=== PATIENT | female | born 2000 | race Caucasian/White ===

== ENCOUNTER 2023-08-06 02:31 | Inpatient (IN) ==
[2023-08-06 03:20] LABS: Appearance Urine Clear (Clear); Bacteria Urine Automated None Seen (None Seen); Bilirubin Urine Negative (Negative); Blood Urine Negative (Negative); Cast Urine Automated 0-2 /lpf (0-2); Color Urine Yellow; Epithelial Cell Urine Auto 0-2 /hpf (0-2); Glucose Urine UA Negative (Negative); Ketones Urine Negative (Negative); Leukocyte Esterase Urine 1+ (Negative); Nitrite Urine Negative (Negative); Protein Urine Negative (Negative); RBC Urine Automated 0-2 /hpf (0-2); Specific Gravity Urine 1.003 (1.000-1.030); Urobilinogen Urine Negative (Negative)
--- NOTE | 2023-08-06 03:25 | Emergency Department Note ---
Impression & Plan Alcohol intoxication, NSAID overdose, Suicidal ideation ED Provider Note HISTORY OF PRESENT ILLNESS: Patient is a 22-year-old female presenting after an intentional overdose. Patient reportedly texted her friend that she "wanted to go by." Her friend called her father who brings the patient to the ER. Patient is tearful and evasive with answering questions. She states that she took 4-5 tabs of Celebrex at a time and took 4-5 handfuls about 1 hour prior to arrival. She reports she has had 7 beers tonight. Reports that she has self-harm behaviors with cutting in the past. She reports that her prescription for Celebrex is 100 mg. She denies taking any other medications. Denies any current chest pain or shortness of breath. Denies any abdominal pain, nausea or vomiting. She reports she is not having as of wanting to end her life for over a year, but they have been worse and more frequent in the last few weeks. Patient denies taking any other medications, including prescription or [id number], other than the Celebrex. ROS: as above PHYSICAL EXAM: Constitutional: Patient appears in no acute distress. HENT: Head: Normocephalic and atraumatic. Eyes: EOMI, PERRL Mouth/Throat: Mucous membranes moist. Neck: Trachea midline. Neck supple. Musculoskeletal: No edema, tenderness or deformity noted. Skin: Warm and dry. No rash, erythema, pallor or cyanosis Psychiatric: Patient is tearful. Neurological: Alert and keenly responsive. CN II-XII grossly intact, moving all extremities equally and fully. MDM: - Vitals signs showed hypertension - History obtained via patient. History as above. - Chronic conditions affecting care: anxiety/depression - Differential diagnoses include, but are not limited to: alcohol intoxication; drug overdose; dysrhythmia; electrolyte abnormality; UTI - Order placed for continuous cardiac monitoring. At this time, monitor showed rate of 90 bpm with normal sinus rhythm, per my interpretation. - External medical records reviewed. Operative report dated 02/09/2020 was reviewed. Patient follow-up with oral maxillofacial surgery for impacted wisdom teeth #1 and #16. - EKG interpreted by myself showed normal sinus rhythm. Rate 85 bpm. QT 392. No acute ischemic changes. - Laboratory workup interpreted by myself showed normal WBC; slight hypokalemia (K 3.2); hypermagnesemia (Mg 2.6); elevated ethanol level (184.1); negative acetaminophen/salicylate levels; negative hCG - UA negative for infection - UDS negative - COVID negative - Patient seen in conjunction with behavioral health behavioral health case manager. -Nursing staff called poison control center in terms of the patient's Celebrex overdose. They report that the patient should be monitored and can be medically cleared at 6 hours postingestion. Patient reports that she ingested the medications about 1 hour prior to arrival in the emergency department around 2:30 AM. Patient will be medically cleared at 7:30 AM. - Prior to disposition, care of patient was checked out to Dr. Maravilla following a discussion of the patient's course. ASSESSMENT AND PLAN: Diagnosis: alcohol intoxication; NSAID overdose; suicidal ideation with attempt Past Med/Surg History Medical History Anxiety and depression Migraine Surgical History H/O wisdom tooth extraction 02/02 Dr. kent No history of previous surgery Family History Other Past medical history not known due to adoption Social History Smoking Status: Former smoker Second Hand Exposure: No; Hx Alcohol Use: No Hx Substance Use: No Preferred Language: Hebrew Web Content Producer Required: No Beliefs That Will Affect Care: None marital status: Single current occupational status: student Feels Safe at Home: No Assistive Devices: None Allergies Allergies Allergy/AdvReac Type Severity Reaction Status Date / Time No Known Allergies Allergy Verified 02/17/20 10:40 Home Meds Home Medications Medication Instructions Recorded Confirmed bupropion HCl 150 mg tablet,12 hr 150 mg PO QAM 12/02/19 02/17/20 sustained-release (Wellbutrin SR) magnesium 250 mg tablet 250 mg PO BID 12/02/19 02/17/20 melatonin 5 mg capsule 5 mg PO HS 12/02/19 02/17/20 multivitamin (Daily Multi-Vitamin 1 tab PO QAM 12/02/19 02/17/20 tablet) riboflavin (vitamin B2) 25 mg 50 mg PO BID 12/02/19 02/17/20 tablet Previous Rx's Medication Instructions Recorded ondansetron HCl 8 mg tablet 8 mg PO Q8H PRN nausea and 02/09/20 vomiting #10 tabs Results & Data (ED) Vital Signs Vital Signs - 24 hr 08/06/23 02:33 08/06/23 02:55 08/06/23 02:56 Temperature 36.4 C L Temperature Source Temporal Artery Scan Pulse Rate 109 H 85 87 Pulse Rate [Apical] Pulse Rate from SpO2 Sensor 87 Pulse Rhythm Pulse Rhythm [Apical] Pulse Strength [Apical] Respiratory Rate 20 17 Respiratory Effort / Characteristics Non-Labored Spontaneous Respiratory Depth Normal Respiratory Pattern Blood Pressure 142/88 H Blood Pressure [Left Arm] Blood Pressure Mean 106 Blood Pressure Mean [Left Arm] Blood Pressure Position [Left Arm] Pulse Oximetry 98 97 Oxygen Delivery Method Room Air Room Air Oxygen Flow Rate Sepsis Recent Fever Within 48 Hours No Sepsis New/Unexplained Change in Mental Status N/A Sepsis Action Taken by Nursing No Action Required 08/06/23 03:00 08/06/23 03:03 08/06/23 03:29 Temperature Temperature Source Pulse Rate 81 86 92 H Pulse Rate [Apical] Pulse Rate from SpO2 Sensor 82 85 Pulse Rhythm Regular Pulse Rhythm [Apical] Pulse Strength [Apical] Respiratory Rate 16 19 17 Respiratory Effort / Characteristics Respiratory Depth Respiratory Pattern Blood Pressure 109/69 Blood Pressure [Left Arm] Blood Pressure Mean 82 Blood Pressure Mean [Left Arm] Blood Pressure Position [Left Arm] Pulse Oximetry 99 98 99 Oxygen Delivery Method Room Air Room Air Room Air Oxygen Flow Rate Sepsis Recent Fever Within 48 Hours Sepsis New/Unexplained Change in Mental Status Sepsis Action Taken by Nursing 08/06/23 03:30 08/06/23 03:31 08/06/23 04:00 Temperature Temperature Source Pulse Rate 97 H 96 H Pulse Rate [Apical] Pulse Rate from SpO2 Sensor 98 H 98 H Pulse Rhythm Pulse Rhythm [Apical] Pulse Strength [Apical] Respiratory Rate 20 18 Respiratory Effort / Characteristics Respiratory Depth Respiratory Pattern Blood Pressure 123/88 Blood Pressure [Left Arm] Blood Pressure Mean 99 Blood Pressure Mean [Left Arm] Blood Pressure Position [Left Arm] Pulse Oximetry 96 97 Oxygen Delivery Method Room Air Room Air Room Air Oxygen Flow Rate 98 Sepsis Recent Fever Within 48 Hours Sepsis New/Unexplained Change in Mental Status Sepsis Action Taken by Nursing 08/06/23 04:00 08/06/23 04:30 08/06/23 04:32 Temperature Temperature Source Pulse Rate 84 80 Pulse Rate [Apical] 84 Pulse Rate from SpO2 Sensor 79 Pulse Rhythm Pulse Rhythm [Apical] Regular Pulse Strength [Apical] Normal Respiratory Rate 16 14 16 Respiratory Effort / Characteristics Non-Labored Spontaneous Respiratory Depth Normal Respiratory Pattern Regular Blood Pressure 123/88 Blood Pressure [Left Arm] 123/88 Blood Pressure Mean 110 Blood Pressure Mean [Left Arm] 99 Blood Pressure Position [Left Arm] Lying Pulse Oximetry 97 100 98 Oxygen Delivery Method Room Air Room Air Room Air Oxygen Flow Rate Sepsis Recent Fever Within 48 Hours Sepsis New/Unexplained Change in Mental Status Sepsis Action Taken by Nursing 08/06/23 05:00 08/06/23 05:00 Temperature Temperature Source Pulse Rate 77 82 Pulse Rate [Apical] Pulse Rate from SpO2 Sensor 77 Pulse Rhythm Pulse Rhythm [Apical] Pulse Strength [Apical] Respiratory Rate 16 16 Respiratory Effort / Characteristics Respiratory Depth Respiratory Pattern Blood Pressure 99/51 L Blood Pressure [Left Arm] Blood Pressure Mean 62 Blood Pressure Mean [Left Arm] Blood Pressure Position [Left Arm] Pulse Oximetry 96 96 Oxygen Delivery Method Room Air Room Air Oxygen Flow Rate Sepsis Recent Fever Within 48 Hours Sepsis New/Unexplained Change in Mental Status Sepsis Action Taken by Nursing Laboratory Data 08/06/23 03:02 08/06/23 03:02 Lab Results 08/06/23 08/06/23 08/06/23 Range/Units 02:45 03:02 04:20 WBC 7.18 (4.8-10.8) K/ul RBC 4.74 (4.20-5.40) M/uL Hgb 14.4 (12.0-16.0) g/dl Hct 42.5 (37.0-47.0) % MCV 89.7 (80.0-100.0) fL MCH 30.4 (25.0-34.0) pg MCHC 33.9 (32.0-36.0) g/dL RDW Std Deviation 41.8 (36.4-46.3) fL RDW Coeff of Kt 12.5 (11.5-14.5) % Plt Count 316 (130-400) K/uL MPV 10.0 (9.4-12.4) fL Immature Gran % (Auto) 0.4 % Neut % (Auto) 63.1 % Lymph % (Auto) 32.0 % Frederick % (Auto) 3.8 % Eos % (Auto) 0.3 % Baso % (Auto) 0.4 % Neut # (Auto) 4.53 (1.40-6.50) K/uL Lymph # (Auto) 2.30 (1.20-3.40) K/uL Frederick # (Auto) 0.27 (0.11-0.59) K/uL Eos # (Auto) 0.02 (0.00-0.50) K/uL Baso # (Auto) 0.03 (0.00-0.20) K/uL Immature Gran # (Auto) 0.03 (0.01-0.20) K/uL Sodium 142 (136-145) mmol/L Potassium 3.2 L (3.5-5.1) mmol/L Chloride 110 H (98-107) mmol/L Carbon Dioxide 22 (21-32) mmol/L Anion Gap 10 (3-11) BUN 8 (6-23) mg/dl Creatinine 0.75 (0.6-1.2) mg/dl Est Cr Clr Drug Dosing 99.0 ml/min Est GFR ( Amer) 133.0 ml/min Est GFR (Non-Af Amer) 114.7 ml/min BUN/Creatinine Ratio 10.7 (10-20) Glucose 108 H (70-99(Fasting)) mg/dl Calcium 9.6 (8.6-10.3) mg/dl Magnesium 2.6 H (1.7-2.4) mg/dl Total Bilirubin 0.2 (0.2-1.0) mg/dl AST 25 (13-39) U/L ALT 21 (7-52) U/L Alkaline Phosphatase 61 (34-104) U/L Total Protein 8.0 (6.0-8.3) gm/dl Albumin 4.8 (3.4-5.0) gm/dl Globulin 3.2 (2.5-4.0) gm/dl Albumin/Globulin Ratio 1.5 (0.9-2) HCG, Qual Negative (Negative) Urine Color Yellow Urine Appearance Clear (Clear) Urine pH 6.0 (4.5-7.5) Ur Specific Cr[place] 1.003 (1.000-1.030) Urine Protein Negative (Negative) Urine Glucose (UA) Negative (Negative) Urine Ketones Negative (Negative) Urine Blood Negative (Negative) Urine Nitrite Negative (Negative) Urine Bilirubin Negative (Negative) Urine Urobilinogen Negative (Negative) Ur Leukocyte Esterase 1+ H (Negative) Urine WBC (Auto) 6-10 H (0-5) /hpf Urine RBC (Auto) 0-2 (0-2) /hpf U Hyaline Cast (Auto) 0-2 (0-2) /lpf U Epithel Cells (Auto) 0-2 (0-2) /hpf Urine Bacteria (Auto) None Seen (None Seen) Salicylates < 3.0 L (3.0-30) mg/dl Urine Opiates Screen Neg (Neg) Ur Methadone, Qual Neg (Neg) Acetaminophen < 3 L (10-30) ug/ml Urine Barbiturates Neg (Neg) Ur Phencyclidine (PCP) Neg (Neg) U Amphetamin/Meth Scrn Neg (Neg) MDMA (Ecstasy) Screen Neg (Neg) U Benzodiazepines Scrn Neg (Neg) Ur Cocaine Metabolite Neg (Neg) U Marijuana (THC) Screen Neg (Neg) Ethyl Alcohol mg/dL 184.1 H (<10.0) mg/dl SARS-CoV-2, RNA, NAAT (NEGATIVE) 08/06/23 Range/Units Unknown WBC (4.8-10.8) K/ul RBC (4.20-5.40) M/uL Hgb (12.0-16.0) g/dl Hct (37.0-47.0) % MCV (80.0-100.0) fL MCH (25.0-34.0) pg MCHC (32.0-36.0) g/dL RDW Std Deviation (36.4-46.3) fL RDW Coeff of Kt (11.5-14.5) % Plt Count (130-400) K/uL MPV (9.4-12.4) fL Immature Gran % (Auto) % Neut % (Auto) % Lymph % (Auto) % Frederick % (Auto) % Eos % (Auto) % Baso % (Auto) % Neut # (Auto) (1.40-6.50) K/uL Lymph # (Auto) (1.20-3.40) K/uL Frederick # (Auto) (0.11-0.59) K/uL Eos # (Auto) (0.00-0.50) K/uL Baso # (Auto) (0.00-0.20) K/uL Immature Gran # (Auto) (0.01-0.20) K/uL Sodium (136-145) mmol/L Potassium (3.5-5.1) mmol/L Chloride (98-107) mmol/L Carbon Dioxide (21-32) mmol/L Anion Gap (3-11) BUN (6-23) mg/dl Creatinine (0.6-1.2) mg/dl Est Cr Clr Drug Dosing ml/min Est GFR ( Amer) ml/min Est GFR (Non-Af Amer) ml/min BUN/Creatinine Ratio (10-20) Glucose (70-99(Fasting)) mg/dl Calcium (8.6-10.3) mg/dl Magnesium (1.7-2.4) mg/dl Total Bilirubin (0.2-1.0) mg/dl AST (13-39) U/L ALT (7-52) U/L Alkaline Phosphatase (34-104) U/L Total Protein (6.0-8.3) gm/dl Albumin (3.4-5.0) gm/dl Globulin (2.5-4.0) gm/dl Albumin/Globulin Ratio (0.9-2) HCG, Qual (Negative) Urine Color Urine Appearance (Clear) Urine pH (4.5-7.5) Ur Specific Cr[place] (1.000-1.030) Urine Protein (Negative) Urine Glucose (UA) (Negative) Urine Ketones (Negative) Urine Blood (Negative) Urine Nitrite (Negative) Urine Bilirubin (Negative) Urine Urobilinogen (Negative) Ur Leukocyte Esterase (Negative) Urine WBC (Auto) (0-5) /hpf Urine RBC (Auto) (0-2) /hpf U Hyaline Cast (Auto) (0-2) /lpf U Epithel Cells (Auto) (0-2) /hpf Urine Bacteria (Auto) (None Seen) Salicylates (3.0-30) mg/dl Urine Opiates Screen (Neg) Ur Methadone, Qual (Neg) Acetaminophen (10-30) ug/ml Urine Barbiturates (Neg) Ur Phencyclidine (PCP) (Neg) U Amphetamin/Meth Scrn (Neg) MDMA (Ecstasy) Screen (Neg) U Benzodiazepines Scrn (Neg) Ur Cocaine Metabolite (Neg) U Marijuana (THC) Screen (Neg) Ethyl Alcohol mg/dL (<10.0) mg/dl SARS-CoV-2, RNA, NAAT NEGATIVE (NEGATIVE) Discharge Plan Visit Data Chief Complaint: Overdose (Intentional) Stated Complaint: OVERDOSE ED Provider: Guillermina Cardenas Discharge Problem: Alcohol intoxication, NSAID overdose, Suicidal ideation Forms Stand Alone Forms: [facility], Suicide Prevention Resources Prescriptions Prescriptions: No Action bupropion HCl [Wellbutrin SR] 150 mg tablet sustained-release 12 hr 150 mg PO QAM riboflavin (vitamin B2) 25 mg tablet 50 mg PO BID magnesium 250 mg tablet 250 mg PO BID multivitamin [Daily Multi-Vitamin] Tablet 1 tab PO QAM melatonin 5 mg capsule 5 mg PO HS ondansetron HCl 8 mg tablet 8 mg PO Q8H PRN (Reason: nausea and vomiting) Qty: 10 0RF Referrals Referrals: [facility] [Primary Care Provider] -
[2023-08-06 03:39] LABS: Basophils # (auto) 0.03 K/uL (0.00-0.20); Basophils % (auto) 0.4 %; Eosinophils # (auto) 0.02 K/uL (0.00-0.50); Eosinophils % (auto) 0.3 %; Hematocrit (blood only) 42.5 % (37.0-47.0); Hemoglobin 14.4 g/dl (12.0-16.0); Immature Granulocytes # (auto) 0.03 K/uL (0.01-0.20); Immature Granulocytes % (auto) 0.4 %; Mean Corpuscular Hemoglobin 30.4 pg (25.0-34.0); Mean Corpuscular Hgb Conc 33.9 g/dL (32.0-36.0); Mean Corpuscular Volume 89.7 fL (80.0-100.0); Monocytes # (auto) 0.27 K/uL (0.11-0.59); Monocytes % (auto) 3.8 %; Neutrophils # (auto) 4.53 K/uL (1.40-6.50); Neutrophils % (auto) 63.1 %; Platelet Count 316 K/uL (130-400); RDW Coefficient of Variation 12.5 % (11.5-14.5); RDW Standard Deviation 41.8 fL (36.4-46.3); Red Blood Count 4.74 M/uL (4.20-5.40); White Blood Count 7.18 K/ul (4.8-10.8)
[2023-08-06 03:58] LABS: Amphetamines+Metham, Urine Neg (Neg); Barbiturates, Urine Neg (Neg); Benzodiazepine, Urine Neg (Neg); Cocaine, Urine Neg (Neg); MDMA (Ecstacy), Urine Neg (Neg); Marijuana, Urine Neg (Neg); Methadone, Urine Neg (Neg); Opiate, Urine Neg (Neg); Phencyclidine, Urine Neg (Neg)
[2023-08-06 04:00] LABS: Albumin Globulin Ratio 1.5 (0.9-2); Albumin Level 4.8 gm/dl (3.4-5.0); BUN Creatinine Ratio 10.7 (10-20); Bilirubin,Total 0.2 mg/dl (0.2-1.0); Calcium 9.6 mg/dl (8.6-10.3); Est GFR (Non-African American) 114.7 ml/min; Globulin 3.2 gm/dl (2.5-4.0); Magnesium 2.6 mg/dl (1.7-2.4); Potassium 3.2 mmol/L (3.5-5.1)
[2023-08-06 05:14] LABS: Acetaminophen < 3 ug/ml (10-30); Salicylate < 3.0 mg/dl (3.0-30)
[2023-08-06 05:24] LABS: Pregnancy Test, Serum Negative (Negative)
--- NOTE | 2023-08-06 09:12 | Electrocardiogram Report ---
Test Reason : Blood Pressure : / mmHG Vent. Rate : 085 BPM Atrial Rate : 085 BPM P-R Int : 156 ms QRS Dur : 090 ms QT Int : 392 ms P-R-T Axes : 045 039 037 degrees QTc Int : 466 ms Normal sinus rhythm T wave abnormality, consider anterior ischemia Abnormal ECG No previous ECGs available Confirmed by Bonifacio Landers ([id number]) on 08/06/2023 9:11:42 AM Referred By: REFERRED SELF Confirmed By:Thompson Landers
--- NOTE | 2023-08-06 11:22 | Emergency Department Note ---
ED Visit Note Patient was signed out to me at change of shift by Dr. Cardenas, pending reevaluation for alcohol intoxication and suicide attempt via medication ov erdose. Patient was medically cleared at 7:30 AM. Patient was assessed by case management, determined appropriate for inpatient admission. Patient was initially resistant to this idea however following my discussion with the patient and her parents at the bedside she will sign in voluntarily as a 201 for suicidal thoughts and attempt. Patient otherwise physically appears well on my assessment, bed search will be initiated. Patient was evaluated for placement at 3 S. and was accepted for inpatient care. Patient was transferred to the behavioral health unit in stable condition for voluntary admission. Diagnosis: Suicide attempt/suicidal thoughts Disposition: Admission under 201 .
--- OUTSIDE RECORDS SUMMARY | 2023-08-06 13:03 | External Medical Summary | Summary of Care ---
Author Name Unknown Organization [facility] Address [address] [place] [address] Phone [phone] Care Team Providers Care Neurologist Name Role Phone Milli Fajardo DOREEN Primary Care Provider [phone] Reason for Visit * Reason Onset Date Comments Appointment 05/16/2023 MRI Encounter Details Date Type Department Care Team (Late st Contact Info) Description 05/16/2023 Telephone [address] [facility] [place] [address] Krystal Boogie, RT (R) Appointment (MRI) Allergies No known active allergiesdocumented as of this encounter (statuses as of 05/16/2023) Medications Medication Sig Dispensed Refills Start Date End Date Status Norethindrone 0.35 MG Oral TabletIndications:Gene ral counselling and advice on contraception Take 1 Tablet by mouth in the morning. 84 Tablet 3 10/22/2022 Active Gabapentin 100 MG Oral Capsule (Neurontin)Indications :Acute bilateral low back pain with bilateral sciatica Take 1 Capsule by mouth in the morning and 1 Capsule at noon and 1 Capsule before bedtime. 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 Ingrowing right great toenail 10/02/2015 Migraine without aura and wi thout status migrainosus, not intractable 06/26/2015 Asthma in remission 12/24/2012 Migraine with aura and with status migrainosus, not intractable documented as of this encounter (statuses as of 05/16/2023) Resolved Problems Problem Noted Date Diagnosed Date Resolved Date Concussion with no loss of consciousness 05/14/2015 05/23/2015 HYPERTROPHY TONSILS 05/25/2006 12/25/19 13 documented as of this encounter (statuses as of 05/16/2023) Immunizations Name Administration Dates Next Due COVID-19 mRNA, LNP-s, No Pre serve, 2-Dose Series ([place]. com. cn) 08/30/2020,08/09/2020 DTaP Dipth/Tet/Acell Pertussis (Infanrix), Peds 10/12/2007 H1N1 2009 Influenza, Intranasal 04/27/2009 HPV Vaccine, 9-Valent 10/27/2017,10/08/2016 IPV - Polio Virus Vaccine (Inact) 10/12/2007 MMR - Measles/Mumps/Rubella Vaccine 10/12/2007 Meningococcal B, 2/3-Dose Se dina (TRUMENBA) 06/19/2021,12/13/2020 Meningococcal Conjugate Vacc ine (Menactra/Menveo) 02/02/2014 Meningococcal MCV4O Conjugat e Vaccine (Menveo) 01/10/2019 PPD 05/02/2019 Pneumococcal Conjugate Vacci ne, 20-valent ([id number]) 12/26/2021 Seasonal Influenza Intranasal 02/02/2014 ,02/16/2012,02/13/2011,01/23 Seasonal Influenza, PF, 6 M & above, IM , (FluLaval or Fluzone) 01/01/2023,12/26/2021,01/10/2019,06/01 Seasonal Influenza, Quadriva lent, No Preserve, IM 02/07/2016,02/13/2015 Seasonal Influenza, Split, I IV3, No Preserve, Inj 02/10/2006 Seasonal Influenza, Split, I IV3, With Preserve, Inj 02/21/2013,01/23/2009,02/11/2008,01/07 TDAP (age 10 and older)(Boostrix) 02/02/2014 Varicella Vaccine (Chicken Pox) 10/12/2007 documented as of this encounter Social History Tobacco Use Types Packs/Day Years Used Date Smoking Tobacco: Never Smokeless Tobacco: Never Alcohol Use Standard Drinks/Week Comments Yes 0 (1 standard drink = 0.6 oz pur e alcohol) AUDIT-C Answer Date Recorded Q1: How often do you have a drink containing alc ohol? 2-4 times a month 11/29/2020 Q2: How many drinks containi ng alcohol do you have on a typical day when you are drinking? 5 or 6 11/29/2020 Q3: How often do you have si x or more drinks on one occasion? Never 11/29/2020 PHQ-2 Answer Date Recorded PHQ Adult Total Score 0 01/01/2023 Hunger Vital Sign Answer Date Recorded Within the past 12 months, y ou worried that your food would run out before you got the money to buy more. Never true 09/18/19 23 Within the past 12 months, t he food you bought just didn't last and you didn't have money to get more. Never true 09/17/2022 Sex and Gender Information Value Date Recorded Sex Assigned at Female 12/26/2021 2:48 PM EDT Gender Identity Female 12/26/2021 2:48 PM EDT Sexual Orientation Straight 12/26/2021 2: 48 PM EDT Job Start Date Occupation Industry Not on file Not on file Not on file documented as of this encounter Miscellaneous Notes * Telephone Encounter - Krystal Boogie RT (R) - 05/16/2023 11:10 AM EST Name: Jolynn De La Garza Do you have any of the following: Pacemaker, stents, heart valves, aneurysm clips? No Have you ever worked with metal or have you ever gotten metal in your eyes? No Have you had a colonoscopy in the last 30 days? No On dialysis? No Do you have any dermals or body piercing's? Yes-plastic piercings ? No Do you wear an insulin pump or diabetic monitor? No No new tattoos Knows to check in at [address] Geoff (R) documented in this encounter Plan of Treatment Upcoming Encounters Date Type Department Care Team (Late st Contact Info) Description 05/18/2023 7:00 AM EST Imaging Radiology [address], [place] [address] [place] [id number] 10/05/2023 3:00 PM EDT Office Visit Gynecology/Obstetrics [facility] [address] [place] [address] Adilia Sharp PA-C [address] [place] [address] 01/04/2024 2:00 PM EDT Office Visit Family Practice [facility] [address] [place] [address] Milli Fajardo CRNP [address] [place] [address] Health Maintenance Due Date Last Done Comments Hepatitis B (3 of 3 - 3-dose series) 02/01/2004 12/07/2003, 10/02/2003, 09/11/2003 Gonorrhea / Chlamydia Screen 11/29/2021 11/29/2020 COVID-19 Vaccine (3 - 2022-2 4 season) 2022 08/30/2020, 08/09/2020 Depression Screening 01/02/2024 01/01/2023 Yearly Wellness Visit 01/02/2024 01/01/2023 , 11/29/2020, 11/04/2019, Additional history exists DTaP,Tdap,and Td Vaccines (6 - Td or Tdap) 02/03/2024 02/02/2014, 10/12/2007, 06/19/2004, Additional history exists GARDASIL-HPV IMMUNIZATION SERIES Completed 10/28/19, 10/08/2016 MENINGOCOCCAL (MENACTRA/MENVEO) Completed , 02/02/2014 Pneumococcal Vaccine: Pediat rics (0 to 5 Years) and At-Risk Patients (6 to 64 Years) Completed 12/26/2021 Influenza Vaccine (FLU shot) Completed , 12/26/2021, 01/10/2019, Additional history exists documented as of this encounter Medical Devices Not on filedocumented as of this encounter Additional Health Concerns Infection Onset Date Last Indicated Resolved Time Norovirus 06/09/2022 06/09/2022 documented as of this encounter Care Teams Neurologist Relationship Specialty Start Date End Date Milli Fajardo CRNP [address] [place] [id number] PCP - General Nurse Practitioner 03/28/22 documented as of this encounter
--- OUTSIDE RECORDS SUMMARY | 2023-08-06 13:03 | External Medical Summary | Summary of Care ---
Author Name Unknown Organization [facility] Address [address] [place] [address] Phone [phone] Care Team Providers Care Process Control Board Operator Name Role Phone Leacharlie Milli LOGAN Primary Care Provider [phone]- [phone] Reason for Referral * Evaluate & Treat - Unlimited Visits (Within 10 days (routine)) - Pending Review Specialty Diagnoses / Procedures Referred By Aliyah bansal Referred To Contact Pain Management / Pain Medicine Diagnoses Lumbar radiculopathy Latoya Cabral PA-C [address] [place] [address] Referral ID Status Reason Start Date Expiration Date Visits Requested Visits Authorized [id number] Pending Review Specialty Services Required 05/19/2023 999 [id number] Question Answer Referral Priority Within 10 days (routine) Where should this appointment be scheduled? [facility] Reason for referral? Interventional Pain Management - (Injection) What condition is the patient being referred for? Lumbar Radiculopathy - L4-5 disc protrusion What is the preferred location to have this test performed? [facility] Comments Patient Name: Jolynn De La Garza Date of : 2000 Department Phone Number: MRI or CT (if unable to have a MRI) is recommended if any of the following apply: 1. Patient has neck or back pain with radiation to extremities. A previous MRI will be accepted if symptoms unchanged since prior MRI. 2. Spinal surgery since last MRI. If yes, order a MRI with and without contrast. 3. Hx or ongoing cancer treatment. Patient will need spine x-ray (Ap/Lat) for axial neck or back pain if not done previously. Fax No. [facility] [phone] or contact bookkeeping clerks supervisor [phone] Fax No. [facility] [phone] or contact bookkeeping clerks supervisor [phone] Fax No. [facility] [phone] or contact bookkeeping clerks supervisor [phone] Reason for Visit * Reason Onset Date Comments Test Results 05/19/2023 MRI results Encounter Details Date Type Department Care Team (Late st Contact Info) Description 05/19/2023 Telephone Family Practice [facility] [address] [place] [address] Latoya Cabral PA-C [address] [place] [address] Test Results (MRI results) Allergies No known active allergiesdocumented as of this encounter (statuses as of 06/02/2023) Medications Medication Sig Dispensed Refills Start Date End Date Status Norethindrone 0.35 MG Oral TabletIndications:Gener al counselling and advice on contraception Take 1 Tablet by mouth in the morning. 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 Ingrowing right great toenail 10/02/2015 Migraine without aura and wi thout status migrainosus, not intractable 06/26/2015 Asthma in remission 12/24/2012 Migraine with aura and with status migrainosus, not intractable documented as of this encounter (statuses as of 06/02/2023) Resolved Problems Problem Noted Date Diagnosed Date Resolved Date Concussion with no loss of consciousness 05/14/2015 05/23/2015 HYPERTROPHY TONSILS 05/25/2006 12/25/19 13 documented as of this encounter (statuses as of 06/02/2023) Immunizations Name Administration Dates Next Due COVID-19 mRNA, LNP-s, No Pre serve, 2-Dose Series (Pfizer) 08/30/2020,08/09/2020 DTaP Dipth/Tet/Acell Pertussis (Infanrix), Peds 10/12/2007 H1N1 2009 Influenza, Intranasal 04/27/2009 HPV Vaccine, 9-Valent 10/27/2017,10/08/2016 IPV - Polio Virus Vaccine (Inact) 10/12/2007 MMR - Measles/Mumps/Rubella Vaccine 10/12/2007 Meningococcal B, 2/3-Dose Se dina (TRUMENBA) 06/19/2021,12/13/2020 Meningococcal Conjugate Vacc ine (Menactra/Menveo) 02/02/2014 Meningococcal MCV4O Conjugat e Vaccine (Menveo) 01/10/2019 PPD 05/02/2019 Pneumococcal Conjugate Vacci ne, 20-valent ([id number]) 12/26/2021 Seasonal Influenza Intranasal 02/02/2014 ,02/16/2012,02/13/2011,01/23 Seasonal [...] encounter Miscellaneous Notes * Telephone Encounter - Veronika Cota LPN - 05/19/2023 1:49 PM EST Pt called and given message below and wants to discuss with her parents on next step. She will senda [employer] message on her decision on what she wants to do. * Telephone Encounter - Latoya Cabral PA-C - 05/19/2023 12:20 PM EST Please let patient know that there was small disc bulge at L4-5 which is likely contributing to pain. There was no evidence of disc herniation. At this time I would recommend restarting PT and considering pain management for injections for pain. documented in this encounter Plan of Treatment Upcoming Encounters Date Type Department Care Team (Latest Contact Info) Description 08/07/2023 12:30 PM EDT Hospital Encounter [facility], Operating Room [facility] [address] [facility] [place] [phone] Fredy Reilly, DO [address] [place] [id number] 08/07/2023 12:30 PM EDT - 08/07/2023 12:55 PM EDT Surgery OR [facility], Operating Room [facility] [address] [place] [phone] Fredy Reilly, DO [address] [place] [phone] INJECTION SPINE LUMBAR OR SACRAL 10/05/2023 3:00 PM EDT Office Visit Gynecology/Obstetri [facility] [address] [place] [address] Adilia Sharp PA-C [address] [place] [address] 01/04/2024 2:00 PM EDT Office Visit Family Practice [facility] [address] [place] [address] Milli Fajardo CRNP [address] [place] [address] Scheduled Procedures Name Priority Associated Diagnoses Date/Ti me INJECTION SPINE LUMBAR OR SACRAL Lumbar radiculopathy 08/07/2023 12:30 PM EDT Scheduled Referrals Name Type Priority Associated Diagnoses Orde r Schedule PAIN MEDICINE REFERRAL OP Referral Within 10 days (routine) Lumbar radiculopathy Ordered: 05/19/2023 Health Maintenance Due Date Last Done Comments [...] Additional history exists GARDASIL-HPV IMMUNIZATION SERIES Completed 10/28/19 18, 10/08/2016 MENINGOCOCCAL (MENACTRA/MENVEO) Completed , 02/02/2014 Pneumococcal Vaccine: Pediat rics (0 to 5 Years) and At-Risk Patients (6 to 64 Years) Completed 12/26/2021 Influenza Vaccine (FLU shot) Completed , 12/26/2021, 01/10/2019, Additional history exists documented as of this encounter Medical Devices Not on filedocumented as of this encounter Visit Diagnoses Diagnosis Lumbar radiculopathy- Primary Thoracic or lumbosacral neuritis or radiculitis, unspecified Lumbar radiculopathy Thoracic or lumbosacral neuritis or radiculitis, unspecified documented in this encounter Additional Health Concerns Infection Onset Date Last Indicated Resolved Time Norovirus 06/09/2022 06/09/2022 documented as of this encounter Care Teams Process Control Board Operator Relationship Specialty Start Date End Date Milli Fajardo CRNP [address] [place] [address] PCP - General Nurse Practitioner 03/28/22 documented as of this encounter
--- OUTSIDE RECORDS SUMMARY | 2023-08-06 13:03 | External Medical Summary | Summary of Care ---
Author Name Unknown Organization [facility] Address [address] [place] [address] Phone [phone] Care Team Providers Care Combine Mechanic Name Role Phone Milli Fajardo DOREEN Primary Care Provider [phone]- [phone] Reason for Referral * Precert (Within 10 days (routine)) - Pending Review Specialty Diagnoses / Procedures Referred By Aliyah bansal Referred To Contact Radiology Diagnoses Lumbar radiculopathy Leg weakness, bilateral Procedures MRI L SPINE WO CONTRAST Latoya Cabral PA-C [address] [place] [address] Referral ID Status Reason Start Date Expiration Date V isits Requested Visits Authorized [id number] Pending Review 03/31/[phone] Reason for Visit * Reason Comments Back Pain Dx herniated disc, a nd doing PT now, this past weekend, pain flared up. Wore heels Thursday night, but thinks it happened while sleeping. Encounter Details Date Type Department Care Team (Late st Contact Info) Description 03/31/2023 11:20 AM EST Office Visit Family Practice [facility] [address] [place] [address] Latoya Cabral PA-C [address] [place] [address] Lumbar radiculopathy*; Leg weakness, bilateral Allergies No known active allergiesdocumented as of this encounter (statuses as of 04/02/2023) Medications Medication Sig Dispensed Refills Start Date End Date Status Norethindrone 0.35 MG Oral TabletIndications:G eneral counselling and advice on contraception Take 1 Tablet by mouth in the morning. 84 Tablet 3 10/22/2022 Active Gabapentin 100 MG Oral Capsule (Neurontin)Indicati ons:Acute bilateral low back pain with bilateral sciatica Take 1 Capsule by mouth in the morning and 1 Capsule at noon and 1 Capsule before bedtime. 90 Capsule 0 03/02/2023 Active predniSONE 10 MG Oral Tablet (Deltasone)Indicati ons:Lumbar radiculopathy Take 5 tabs for 2 days, 4 tabs for 2 days, 3 tabs for 2 days, 2 tabs for 2 days 1 tab for 2 days 30 Tablet 0 03/31/2023 Active predniSONE 10 MG Oral Tablet (Deltasone)Indicati ons:Acute bilateral low back pain with bilateral sciatica Take 5 tabs for 2 days, 4 tabs for 2 days, 3 tabs for 2 days, 2 tabs for 2 days 1 tab for 2 days 30 Tablet 0 03/02/2023 3 Discontinued documented as of this encounter (statuses as of 04/02/2023) Active Problems Problem Noted Date Diagnosed Date UTI symptoms 04/05/2021 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 Ingrowing right great toenail 10/02/2015 Migraine without aura and wi thout status migrainosus, not intractable 06/26/2015 Asthma in remission 12/24/2012 Migraine with aura and with status migrainosus, not intractable documented as of this encounter (statuses as of 04/02/2023) Resolved Problems Problem Noted Date Diagnosed Date Resolved Date Concussion with no loss of consciousness 05/14/2015 05/23/2015 HYPERTROPHY TONSILS 05/25/2006 12/25/19 13 documented as of this encounter (statuses as of 04/02/2023) Immunizations Name Administration Dates Next Due COVID-19 mRNA, LNP-s, No Pre serve, 2-Dose Series (Guarnic) 08/30/2020,08/09/2020 DTaP Dipth/Tet/Acell Pertussis (Infanrix), Peds 10/12/2007 H1N1 2009 Influenza, Intranasal 04/27/2009 HPV Vaccine, 9-Valent 10/27/2017,10/08/2016 IPV - Polio Virus Vaccine (Inact) 10/12/2007 MMR - Measles/Mumps/Rubella Vaccine 10/12/2007 Meningococcal B, 2/3-Dose Se dina (TRUMENBA) 06/19/2021,12/13/2020 Meningococcal Conjugate Vacc ine (Menactra/Menveo) 02/02/2014 Meningococcal MCV4O Conjugat e Vaccine (Menveo) 01/10/2019 PPD 05/02/2019 Pneumococcal Conjugate Vacci ne, 20-valent ([id number]) 12/26/2021 Seasonal Influenza Intranasal 02/02/2014 ,02/16/2012,02/13/2011,01/23 Seasonal [...] on file documented as of this encounter Last Filed Vital Signs Vital Sign Reading Time Taken Comments Blood Pressure 100/40 03/31/2023 11:19 AM EST Pulse 88 03/31/2023 11:19 AM EST Temperature - - Respiratory Rate - - Oxygen Saturation - - Inhaled Oxygen Concentration - - Weight 68.5 kg (151 lb 2 oz) 03/31/2023 11:19 AM EST Height - - Body Mass Index - - documented in this encounter Progress Notes * Latoya Cabral PA-C - 03/31/2023 11:29 AM EST SUBJECTIVE: CC: Jolynn De La Garza 22 year old female who presents for evaluation of low back pain worsening. HPI: Patient was seen 02/27/[address] Phillips, note reviewed. Patient states that she has had back pain for 2 months, that she feels is a flare of previous injury in high school. This injury was never worked up, it resolved on its own prior to returning recently. She was given prednisone 10 day taper, gabapentin and referred to PT by Dr. Phillips. Reports symptoms were improving, however on Thursdaypain worsening. Pain is now 10/10, starts in lower back and radiates at times down bilateral lower legs. Legs feel weak at times, but she is able to weight bear. She also reports intermittent numbness in bilateral legs. She has not had recent xrays. She reports that she did stop gabapentin after 3 days- no reason given. She has been doing Leopoldo once weekly for low back pain, last appt on , next appt on Thursday. No bowel or urine incontinence. No recent trauma, no rash,no fever, chills, dizziness, headache, nausea, vomiting, diarrhea, abdomen apin. ROS: See HPI for pertinent positive and negatives HISTORY: Past Medical History: Diagnosis Date Bronchitis Concussion with no loss of consciousness 05/14/2015 Hypertrophy tonsils 10/07/2005 Migraine with aura and with status migrainosus, not intractable Radial styloid fracture 05/21/2013 Simple or chronic serous otitis media Chronic Serous Otitis Media No past surgical history on file. Social History Tobacco Use Smoking status: Never Smokeless tobacco: Never Vaping Use Vaping Use: Some days Substances: Nicotine Devices: Disposable, Pre-filled or refillable cartridge Substance Use Topics Alcohol use: Yes Drug use: Never Family History Adopted: Yes Outpatient Medications Marked as Taking for the 03/31/23 encounter (Office Visit) with Latoya Cabral PA-C Medication Sig Gabapentin 100 MG Oral Capsule (Neurontin) Take 1 Capsule by mouth in the morning and 1 Capsule at noon and 1 Capsule before bedtime. Norethindrone 0.35 MG Oral Tablet Take 1 Tablet by mouth in the morning. Review of patient's allergies indicates: No Known Allergies OBJECTIVE: BP 100/40 | Pulse 88 | Wt 68.5 kg (151 lb 2 oz) General: alert, well appearing, well nourished, mild distress Head: Normocephalic, no masses, lesions, or other abnormalities. Heart: regular rate & rhythm, no gallops, and no murmurs Lungs: clear to auscultation Abdomen: abdomen soft, non-tender, and normal bowel sounds Back: Back is symmetrical on inspection and there is no deformity. Point tenderness over lower lumbar back Extremities: less than 2 second capillary refill, no joint deformities, effusion, or inflammation, no edema, no cyanosis, full AROM with pain, 2+ posterior tibial pulses, radial pulses bilaterally, 4/5 b/l knee flexion, hip flexion, 5/5 dorsi and plantar flexion of ankle, 5/5 extension of hip and knee, + straight leg raise bilaterally Neuro: alert & oriented x 3 with fluent speech, no focal motor/sensory deficits, gait normal, reflexes normal and symmetric, rapid alternative movements intake, heel schmitz coordination intact Skin: skin color, texture, turgor are normal, no rashes or significant lesions ASSESSMENT/PLAN: Lumbar radiculopathy (Primary) - predniSONE 10 MG Oral Tablet (Deltasone); Take 5 tabs for 2 days, 4 tabs for 2 days, 3 tabs for 2days, 2 tabs for 2 days 1 tab for 2 days-reviewed side effects (hearburn, insomnia, increase appetite) - MRI L SPINE WO CONTRAST; Future; Expected date: 03/31/2023 - XR L SPINE AP AND LATERAL; Future; Expected date: 03/31/2023 Leg weakness, bilateral - MRI L SPINE WO CONTRAST; Future; Expected date: 03/31/2023 - XR L SPINE AP AND LATERAL; Future; Expected date: 03/31/2023 Xray today given acute flare. Recommend d/c PT at this time. Restart prednisone taper as above. Recommend restarting gabapentin, as prescribed. Given maximum doses of medications: - acetaminophen (Brand name: Tylenol) 3000mg per day - ibuprofen (Brand names: Advil, Motrin) 3200mg per day Total time today including reviewing chart before the visit, pertinent labs, imaging reports, face to face time, and documentation time was 34 minutes. Follow up: Patient instructed to follow up with Primary Care Provider if no better in: 3-5 day(s), and immediately if signs and symptoms worsen Latoya Cabral PA-C [address] [place] [address] documented in this encounter Plan of Treatment Upcoming Encounters Date Type Department Care Team (Late st Contact Info) Description 04/10/2023 2:20 PM EST Office Visit [address] [place] [address] Milli Fajardo CRNP [facility] [place] [address] 04/27/2023 4:15 PM EST Imaging Radiology [facility] 1st Floor, [address] [place] [address] 10/05/2023 3:00 PM EDT Office Visit Gynecology/Obstetrics [facility] [address] [place] [address] Adilia Sharp PA-C [address] [place] [address] 01/04/2024 2:00 PM EDT Office Visit Family Practice [facility] [address] [place] [address] Milli Fajardo CRNP [address] [place] [address] Pending Results Name Type Priority Associated Diagnoses Date /Time XR L SPINE AP AND LATERAL Medical Imaging Routine Lumbar radiculopathy 03/31/2023 11:51 AM EST Scheduled Orders Name Type Priority Associated Diagnoses Orde r Schedule MRI L SPINE WO CONTRAST Medical Imaging Routine Lumbar radiculopathy Leg weakness, bilateral Expected: 03/31/2023, Expires: 05/01/2024 XR L SPINE AP AND LATERAL Medical Imaging Routine Lumbar radiculopathy Leg weakness, bilateral Expected: 03/31/2023, Expires: 05/01/2024 Health Maintenance Due Date Last Done Comments [...] Thoracic or lumbosacral neuritis or radiculitis, unspecified Leg weakness, bilateral Other musculoskeletal symptoms referable to limbs documented in this encounter Additional Health Concerns Infection Onset Date Last Indicated Resolved Time Norovirus 06/09/2022 06/09/2022 documented as of this encounter Care Teams Combine Mechanic Relationship Specialty Start Date End Date Milli Fajardo CRNP [address] [place] [address] PCP - General Nurse Practitioner 03/28/22 documented as of this encounter"
--- OUTSIDE RECORDS SUMMARY | 2023-08-06 13:03 | External Medical Summary | Summary of Care ---
Author Name Unknown Organization [facility] Address [address] [place] [address] Phone [phone] Care Team Providers Care Car Mechanic Helper Name Role Phone Milli Fajardo DOREEN Primary Care Provider +1- [phone] Reason for Referral * Evaluate & Treat - Unlimited Visits (Within 30 days (routine)) - Pending Review Specialty Diagnoses / Procedures Referred By Aliyah bansal Referred To Contact Physical Therapy / Physical Medicine And Rehab Diagnoses Low back pain with radiation Alvarado Phillips MD [address] [place] [address] Referral ID Status Reason Start Date Expiration Date Visits Requested Visits Authorized [id number] Pending Review Specialty Services Required 3 [phone] Question Answer Referral Priority Within 30 days (routine) Where should this appointment be scheduled? [facility] Comments Suspect sciatica DDD eval ROM/strengthening/stim Reason for Visit * Reason Comments Return Visit Patient reports inju ry to back in high school, pain went away after awhile. About a month ago patient states the same area started to hurt. Encounter Details Date Type Department Care Team (Late st Contact Info) Description 02/27/2023 3:40 PM EST Office Visit Family Practice [facility] [address] [place] [address] Alvarado Phillips MD [address] [place] [address] Low back pain with radiation* Allergies No known active allergiesdocumented as of this encounter (statuses as of 02/27/2023) Medications Medication Sig Dispensed Refills Start Date End Date Status Norethindrone 0.35 MG Oral TabletIndications:Gener al counselling and advice on contraception Take 1 Tablet by mouth in the morning. 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 Ingrowing right great toenail 10/02/2015 Migraine without aura and wi thout status migrainosus, not intractable 06/26/2015 Asthma in remission 12/24/2012 Migraine with aura and with status migrainosus, not intractable documented as of this encounter (statuses as of 02/27/2023) Resolved Problems Problem Noted Date Diagnosed Date Resolved Date Concussion with no loss of consciousness 05/14/2015 05/23/2015 HYPERTROPHY TONSILS 05/25/2006 12/25/19 13 documented as of this encounter (statuses as of 02/27/2023) Immunizations Name Administration Dates Next Due COVID-19 [...] PPD 05/02/2019 Pneumococcal Conjugate Vacci ne, 20-valent ([id number]) 12/26/2021 SEASONAL INFLUENZA, PF, 6 M & Above, IM , (FLULAVAL or FLUZONE) 01/01/2023,12/26/2021,01/10/2019,06/01 Seasonal Influenza Intranasal 02/02/2014 ,02/16/2012,02/13/2011,01/23 Seasonal Influenza, Quadriva lent, No Preserve, IM 02/07/2016,02/13/2015 Seasonal Influenza, Split, I IV3, No Preserve, Inj 02/10/2006 Seasonal Influenza, Split, I IV3, With Preserve, Inj 02/21/2013,01/23/2009,02/11/2008,01/07 TDAP (age 10 and older)(Boostrix) 02/02/2014 Varicella Vaccine (Chicken Pox) 10/12/2007 documented as of this encounter Social History Tobacco Use Types Packs/Day Years Used Date Smoking Tobacco: Never Smokeless Tobacco: Never Tobacco Cessation:Counseling Given: Not Answered Alcohol Use Standard Drinks/Week Comments Yes 0 [...] Sign Reading Time Taken Comments Blood Pressure 108/64 02/27/2023 3:40 PM EST Pulse 77 02/27/2023 3:40 PM EST Temperature - - Respiratory Rate 20 02/27/2023 3:40 PM EST Oxygen Saturation 98% 02/27/2023 3:40 PM EST Inhaled Oxygen Concentration - - Weight - - Height - - Body Mass Index - - documented in this encounter Progress Notes * Alvarado Phillips MD - 02/27/2023 4:12 PM EST SUBJECTIVE: Jolynn De La Garza is a 22 year old female here for Return Visit (Patient reports injury to back in high school, pain went away after awhile. About a month ago patient states the same area started to hurt. ) . Patient complains of mid low back pain for about a month. No injuries recent that she recalls. She had a similar pain about a month ago after doing a squat and had sudden sharp pain while lifting weights. It slowly improved on its own. No history of surgery or injections on her back. No other back injuries known. Pain is worse with standing for long time or standing for long time or walking for a long time. Lying supine makes the pain go away. She has had occasional numbness going down the back of bilateral legs more on the right side than the left, over the last 1-1/2-2 weeks. Legs occasionally feel littleheavier but no specific weakness. No incontinence. Physical: BP 108/64 | Pulse 77 | Resp 20 | SpO2 98% General-No apparent Distress Head, Eyes, Ears, Nose, Throat--Normocephalic, atraumatic Neck-Supple Lymph-no lymphadenopathy Mskel +FROM back mild b/l SI tender, paraspinals tight. Pain worse with flexion. Extremities--no edema Neuro-alert & oriented x3 2+dtr b/l 5/5 strength b/l (M54.50) Low back pain with radiation (primary encounter diagnosis) Plan: PHYSICAL THERAPY REFERRAL OP Suspect possible herniated disc--start PT F/u 6 wk sooner prn (This note was completed using the dictation program Fluency Direct. As such, there may be misspellings, word substitutions, or other variations that should not change the essence of the clinical content of this encounter note.If there is need for further clarification, please direct questions to the provider listed above.) Alvarado Phillips MD documented in this encounter Nursing Notes * Shelley Delong LPN - 02/27/2023 3:40 PM EST The patient has been properly identified by confirmation of name and date of . Chief Complaint Patient presents with Return Visit Patient reports injury to back in high school, pain went away after awhile. About a month ago patient states the same area started to hurt. documented in this encounter Plan of Treatment Upcoming Encounters Date Type Department Care Team (Late st Contact Info) Description 04/10/2023 2:20 PM EST Office Visit [facility] [address] [place] [address] Milli Fajardo CRNP [address] [place] [address] 10/05/2023 3:00 PM EDT Office Visit Gynecology/Obstetrics [facility] [address] [place] [address] Adilia Sharp PA-C [address] [place] [address] 01/04/2024 2:00 PM EDT Office Visit [facility] [address] [place] [address] Milli Fajardo CRNP [address] [place] [address] Scheduled Referrals Name Type Priority Associated Diagnoses Orde r Schedule PHYSICAL THERAPY REFERRAL OP Referral Within 30 days (routine) Low back pain with radiation Ordered: 02/27/2023 Health Maintenance Due Date Last Done Comments [...] as of this encounter Visit Diagnoses Diagnosis Low back pain with radiation- Primary documented in this encounter Additional Health Concerns Infection Onset Date Last Indicated Resolved Time Norovirus 06/09/2022 06/09/2022 documented as of this encounter Care Teams Car Mechanic Helper Relationship Specialty Start Date End Date Milli Fajardo CRNP [address] [place] [address] PCP - General Nurse Practitioner 03/28/22 documented as of this encounter"
--- OUTSIDE RECORDS SUMMARY | 2023-08-06 13:03 | External Medical Summary | Summary of Care ---
Author Name Unknown Organization [facility] Address [address] [address] Phone [phone] Care Team Providers Care Retail Furniture Sales Name Role Phone Milli Fajardo DOREEN Primary Care Provider [phone]- [phone] Reason for Visit * Reason Onset Date Comments Appointment 05/04/2023 Encounter Details Date Type Department Care Team (Late st Contact Info) Description 05/04/2023 Telephone Radiology [address] [facility] [address] [place] [address] Danielle Nathan TECH Appointment Allergies No known active allergiesdocumented as of this encounter (statuses as of 05/04/2023) Medications Medication Sig Dispensed Refills Start Date [...] as of this encounter (statuses as of 05/04/2023) Active Problems Problem Noted Date Diagnosed Date UTI symptoms 04/05/2021 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 Ingrowing right great toenail 10/02/2015 Migraine without aura and wi thout status migrainosus, not intractable 06/26/2015 Asthma in remission 12/24/2012 Migraine with aura and with status migrainosus, not intractable documented as of this encounter (statuses as of 05/04/2023) Resolved Problems Problem Noted Date Diagnosed Date Resolved Date Concussion with no loss of consciousness 05/14/2015 05/23/2015 HYPERTROPHY TONSILS 05/25/2006 12/25/19 13 documented as of this encounter (statuses as of 05/04/2023) Immunizations Name Administration Dates Next Due COVID-19 [...] PPD 05/02/2019 Pneumococcal Conjugate Vacci ne, 20-valent ([id number]) 12/26/2021 Seasonal Influenza Intranasal 02/02/2014 ,02/16/2012,02/13/2011,01/23 Seasonal [...] on file documented as of this encounter Plan of Treatment Upcoming Encounters Date Type Department Care Team (Late st Contact Info) Description 05/18/2023 7:00 AM EST Imaging Radiology [facility] [address] [place] [address] 10/05/2023 3:00 PM EDT Office Visit Gynecology/Obstetrics [facility] [address] [place] [address] Adilia Sharp PA-C [address] [place] [address] 01/04/2024 2:00 PM EDT Office Visit Family [facility] [address] [place] [address] Milli Fajardo CRNP [address] [place] [address] Health Maintenance Due Date Last Done Comments [...] documented as of this encounter Care Teams Retail Furniture Sales Relationship Specialty Start Date End Date Milli Fajardo CRNP [address] [place] [address] PCP - General Nurse Practitioner 03/28/22 documented as of this encounter
--- OUTSIDE RECORDS SUMMARY | 2023-08-06 13:03 | External Medical Summary | Summary of Care ---
Author Name Unknown Organization [facility] Address [address] [place] [address] Phone [phone] Care Team Providers Care Environmental Sustainability Manager Name Role Phone Milli Fajardo DOREEN Primary Care Provider +1- [phone] Reason for Visit * Reason Comments Back Pain * Evaluate & Treat - Unlimited Visits (Within 10 days (routine)) - Pending Review Specialty Diagnoses / Procedures Referred By Aliyah bansal Referred To Contact Pain Management / Pain Medicine Diagnoses Lumbar radiculopathy Latoya Cabral PA-C [address] [place] [address] Referral ID Status Reason Start Date Expiration Date Visits Requested Visits Authorized [id number] Pending Review Specialty Services Required 05/19/[phone] Encounter Details Date Type Department Care Team (Late st Contact Info) Description 05/28/2023 12:30 PM EST Office Visit [facility] [address] [place] [address] Breann Carter PA-C [address] [place] [address] Lumbar radicular pain* Allergies No known active allergiesdocumented as of this encounter (statuses as of 05/29/2023) Medications Medication Sig Dispensed Refills Start Date End Date Status Norethindrone 0.35 MG Oral TabletIndications:G eneral counselling and advice on contraception Take 1 Tablet by mouth in the morning. 84 Tablet 3 10/22/2022 Active Celecoxib 100 MG Oral Capsule (CeleBREX)Indicatio ns:Lumbar radicular pain Take 1 Capsule by mouth in the morning and 1 Capsule before bedtime. 60 Capsule 2 05/28/2023 Active Gabapentin 100 MG Oral Capsule (Neurontin)Indicati ons:Acute bilateral low back pain with bilateral sciatica Take 1 Capsule by mouth in the morning and 1 Capsule at noon and 1 Capsule before bedtime. 90 Capsule 0 03/02/2023 05/29/2023 Discontinue d(Medicatio n List Clean Up) predniSONE 10 MG Oral Tablet (Deltasone)Indicati ons:Lumbar radiculopathy Take 5 tabs for 2 days, 4 tabs for 2 days, 3 tabs for 2 days, 2 tabs for 2 days 1 tab for 2 days 30 Tablet 0 03/31/2023 05/29/2023 Discontinue d(Medicatio n List Clean Up) documented as of this encounter (statuses as of 05/29/2023) Active Problems Problem Noted Date Diagnosed Date UTI symptoms 04/05/2021 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 Ingrowing right great toenail 10/02/2015 Migraine without aura and wi thout status migrainosus, not intractable 06/26/2015 Asthma in remission 12/24/2012 Migraine with aura and with status migrainosus, not intractable documented as of this encounter (statuses as of 05/29/2023) Resolved Problems Problem Noted Date Diagnosed Date Resolved Date Concussion with no loss of consciousness 05/14/2015 05/23/2015 HYPERTROPHY TONSILS 05/25/2006 12/25/19 13 documented as of this encounter (statuses as of 05/29/2023) Immunizations Name Administration Dates Next Due COVID-19 mRNA, LNP-s, No Pre serve, 2-Dose Series ([place] Self Representation Document Preparation) 08/30/2020,08/09/2020 DTaP Dipth/Tet/Acell Pertussis (Infanrix), Peds 10/12/2007 H1N1 2009 Influenza, Intranasal 04/27/2009 HPV Vaccine, 9-Valent 10/27/2017,10/08/2016 IPV - Polio Virus Vaccine (Inact) 10/12/2007 MMR - Measles/Mumps/Rubella Vaccine 10/12/2007 Meningococcal B, 2/3-Dose Se dina (TRUMENBA) 06/19/2021,12/13/2020 Meningococcal Conjugate Vacc ine (Menactra/Menveo) 02/02/2014 Meningococcal MCV4O Conjugat e Vaccine (Menveo) 01/10/2019 PPD 05/02/2019 Pneumococcal Conjugate Vacci ne, 20-valent ([id number]) 12/26/2021 Seasonal Influenza Intranasal 02/02/2014 ,02/16/2012,02/13/2011,01/23 Seasonal [...] on file documented as of this encounter Progress Notes * Breann Carter PA-C - 05/28/2023 12:22 PM EST GENERAL HISTORY & PHYSICAL EXAMINATION - Anesthesia and Pain Service Name: Jolynn De La Garza Location: [facility] REFERRING PHYSICIAN: Latoya Cabral PA-C Thank you for referring Jolynn De La Garza. CHIEF COMPLAINT: Low back pain HPI: Jolynn De La Garza is a 22 year old female who complains of bilateral low back and buttock pain that radiates to posterior thigh. Low back pain started a few years ago as a teen, was involved in track. New onset of LE pain and increased low back pain x's five months. Evaluated by PCP for thispain 02/27/23 and 03/31/23, very short term relief with oral steroid, gabapentin. No lasting reliefwith physical therapy ([facility] for more than six weeks. Continues daily home stretching program. Symptoms occur daily. Describes pain as bulging. Pain is constant, rated 5/10. Aggravating factors include: prolonged sitting, ambulating stairs. Alleviating factors include: lying supine, s tretching. Admits associated paresthesia anterior thigh and calf. Denies weakness B LE. Denies bowel or bladder incontinence. Denies hx spine surgery or injections. 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 Reviewed L spine xray 03/31/23 - mild scoliotic curvature, no significant misalignment. Reviewed L spine MRI 05/18/23 - disc bulge L4/5 with mild central stenosis with minimal foraminal narrowing. No area of high grade central stenosis. Current medications used for pain: tylenol. Past medications used for pain: gabapentin, oral steroid, lidocaine patch, topical icy hot. Anticoagulation therapy: no Diabetic: no PAST MEDICAL HISTORY: Past Medical History: Diagnosis Date Bronchitis Concussion with no loss of consciousness 05/14/2015 Hypertrophy tonsils 10/07/2005 Migraine with aura and with status migrainosus, not intractable Radial styloid fracture 05/21/2013 Simple or chronic serous otitis media Chronic Serous Otitis Media Past Medical History - Pertinent Findings: (-) clotting disorder PAST SURGICAL HISTORY: No past surgical history on file. FAMILY HISTORY: Family History Adopted: Yes Family History - Pertinent Findings: (-) clotting disorder SOCIAL HISTORY: Social History Tobacco Use Smoking status: Never Smokeless tobacco: Never Vaping Use Vaping Use: Some days Substances: Nicotine Devices: Disposable, Pre-filled or refillable cartridge Substance Use Topics Alcohol use: Yes Drug use: Never CURRENT MEDICATIONS: Note that discontinued and completed medications (per the MAR) continue to display for 24 hours. Ordered medications to be given in the future also display. Current Outpatient Medications Medication Sig Dispense Refill Norethindrone 0.35 MG Oral Tablet Take 1 Tablet by mouth in the morning. 84 Tablet 3 Gabapentin 100 MG Oral Capsule (Neurontin) Take 1 Capsule by mouth in the morning and 1 Capsule at noon and 1 Capsule before bedtime. 90 Capsule 0 predniSONE 10 MG Oral Tablet (Deltasone) Take 5 tabs for 2 days, 4 tabs for 2 days, 3 tabs for 2 days, 2 tabs for 2 days 1 tab for 2 days 30 Tablet 0 No current facility-administered medications for this visit. ALLERGIES: Patient has no known allergies. ROS: Constitutional: Negative for fatigue, fever, appetite change, unexplained weight loss. ENT: Negative for hearing loss, sore throat. Respiratory: Negative for cough, shortness of breath, dyspnea. Musculoskeletal: Negative for neck, mid-back pain. + low back and LE pain - see HPI Neurological: Negative for headaches, seizures. + paresthesias B LE - see HPI Genitourinary: Negative for dysuria, urinary frequency, hematuria. Hematologic/ Lymphatic: Negative for easy bleeding, bruising, lymphadenopathy. Gastrointestinal: Negative for abdominal pain, nausea, vomiting, constipation, diarrhea. Cardiovascular: Negative for chest pain, palpitations, ankle swelling, orthopnea. PHYSICAL EXAMINATION: Most Recent Vital Signs: There were no vitals filed for this visit. General Appearance: Patient appears to be about stated age, pleasant and cooperative with normal affect. HEENT: head normocephalic, pupils equal round and reactive to light and accommodation, EOMI, hearing intact and equal bilaterally, and nose clear, throat normal Chest: No gross abnormality. Nonlabored breathing. Lumbar Spine: Normal lumbar lordatic curvature is present. Skin is intact without gross abnormalities. No masses palpable. Midline and B paravertebral musculature mildly tender lower lumbar region. Mild tenderness B sacroiliac joint. No evidence of myofascial trigger points. Full active ROM with flexion and extension of the lumbar spine. Lower Extremity Strength: Hip Flexion 5/5 bilaterally. Hip Abductor 5/5 bilaterally. Hip Adductor 5/5 bilaterally. Extensor Hallicus Longus 5/5 bilaterally. Deep Tendon Reflex: Patellar: 2/4 bilaterally. Achilles: 2/4 bilaterally. Low Back Provocative Testing: JULIETTE test: negative bilaterally. Straight Leg Raise Test: positive bilaterally. Lumbar Facet Loading: negative bilaterally. Sensation: Dermatomal sensation not formally tested. Grossly normal and symmetric unless otherwise specified. Gait: Intact, no sign of ataxia. Ambulates without assistance. IMAGING: MRI L SPINE WO CONTRAST 05/18/2023 There is preservation of the lumbar lordosis without evidence of an acute fracture or traumatic listhesis. No evidence of a suspicious osseous lesion, paravertebral mass, or epidural fluid collection. There is mild dessicative change of the L4-L5 intervertebral disc with mild decrease in disc space height at this level. The conus terminates at the level of L1 and there are no cord signal abnormalities. At T12-L1, there is no significant canal or foraminal stenosis. At L1-L2, there is no significant canal or foraminal stenosis. At L2-L3, there is no significant canal or foraminal stenosis. At L3-L4, there is no significant canal or foraminal stenosis. At L4-L5, there is a disc bulge with a small superimposed posterior disc protrusion resulting in mild canal stenosis. There is minimal bilateral foraminal narrowing. At L5-S1, there is no significant canal or foraminal stenosis. IMPRESSION: Mild degenerative disc disease at the L4-L5 level as described above, without evidence of a high-grade canal or foraminal stenosis throughout the lumbar spine. No acute osseous abnormality. XR Lumbosacral Spine 03/31/2023 11:50 AM Bones/joints: Hypoplastic 12th ribs. Five lumbar type vertebral bodies. Mild axial spine scoliosis.The bones and joints are otherwise radiographically unremarkable. Soft tissues: Unremarkable. IMPRESSION: Mild scoliosis. ASSESSMENT: Lumbar radicular pain PLAN: Progressive lumbosacral radicular pain despite physical therapy and medication management. Neurologically intact. Reviewed L spine xray 03/31/23 - mild scoliotic curvature, no significant misalignment. Reviewed L spine MRI 05/18/23 - disc bulge L4/5 with mild central stenosis with minimal foraminal narrowing. No area of high grade central stenosis. Discussed radicular pain and LEATHA using fluoroscopy. Risks including, but not limited to, bleeding, infection, worsening pain, failure to alleviate pain, nerve injury and possible steroid side effects were reviewed. Pre-procedure instructions reviewed, reiterated need for bottom hoop driver, will avoid OTC NSAID. Due to severity and duration of symptoms, will schedule right interlaminar LEATHA L4/5. Follow up six weeks after procedure. Requesting medication for pain in meantime. Discussed prescription NSAID. Will trial low dose celebrex. Follow up in 3-4 weeks for med recheck. If refill is needed, recommend updated labs. Can continue Celebrex for injection. Note for school provided for todays visit. Breann Carter PA-C 05/28/2023 documented in this encounter Nursing Notes * Darlene Guzman LPN - 05/28/2023 12:23 PM EST Patient presents with low back and occ b/l lower ext pain [id number] Did PT-temp relief Worse with prolonged sitting/stairs Relief for 3days with oral steroids and Gabapentin MRI in chart Had same issues in teen years but was never evaluated documented in this encounter Miscellaneous Notes * Pt Handout (on AVS) - Breann Carter PA-C - 05/28/2023 1:08 PM EST Images from the original note were not included. Lumbar Epidural Steroid Injection - Video This injection procedure is performed to relieve low back and radiating leg pain. Steroid medication can reduce the swelling and inflammation caused by spinal conditions. To view the video go to this web address: [email or web address] Or, scan this QR code with your smart phone St[employer] documented in this encounter Plan of Treatment Upcoming Encounters Date Type Department Care Team (Latest Contact Info) Description 08/07/2023 12:30 PM EDT Hospital Encounter [facility], Operating Room [facility] [address] [place] [id number] Fredy Reilly DO [address] [place] [phone] 08/07/2023 12:30 PM EDT - 08/07/2023 12:55 PM EDT Surgery OR [facility], Operating Room [facility] [address] [place] [id number] Fredy Reilly DO [address] [place] [phone] INJECTION SPINE LUMBAR OR SACRAL 10/05/2023 3:00 PM EDT Office Visit Gynecology/Obstetri [facility] [address] [place] [address] Adilia Sharp PA-C [address] [place] [address] 01/04/2024 2:00 PM EDT Office Visit Family Practice [facility] [address] [place] [address] Milli Fajardo CRNP [address] [place] [address] Scheduled Orders Name Type Priority Associated Diagnoses Orde r Schedule INJECT DX/THER SUBSTANCE INTERLAMINAR LUMBAR/SACRAL W IMAGE GUIDE Procedures Routine Lumbar radicular pain Ordered: 05/28/2023 Scheduled Procedures Name Priority Associated Diagnoses Date/Ti me INJECTION SPINE LUMBAR OR SACRAL Lumbar radiculopathy 08/07/2023 12:30 PM EDT Health Maintenance Due Date Last Done Comments [...] of this encounter Visit Diagnoses Diagnosis Lumbar radicular pain- Primary Thoracic or lumbosacral neuritis or radiculitis, unspecified Lumbar radiculopathy Thoracic or lumbosacral neuritis or radiculitis, unspecified documented in this encounter Additional Health Concerns Infection Onset Date Last Indicated Resolved Time Norovirus 06/09/2022 06/09/2022 documented as of this encounter Care Teams Environmental Sustainability Manager Relationship Specialty Start Date End Date Milli Fajardo CRNP [address] [place] [place] [address] PCP - General Nurse Practitioner 03/28/22 documented as of this encounter
--- OUTSIDE RECORDS SUMMARY | 2023-08-06 13:03 | External Medical Summary | Summary of Care ---
Author Name Unknown Organization [facility] Address [address] [place] [address] Phone [phone] Care Team Providers Care Fuse Coiler Name Role Phone Milli Fajardo DOREEN Primary Care Provider [phone] Reason for Referral * Evaluate & Treat - Unlimited Visits (Within 30 days (routine)) - Pending Review Specialty Diagnoses / Procedures Referred By Aliyah bansal Referred To Contact Physical Therapy / Physical Medicine And Rehab Diagnoses Low back pain with radiation Alvarado Phillips MD [address] [place] [id number] Referral ID Status Reason Start Date Expiration Date Visits Requested Visits Authorized [id number] Pending Review Specialty Services Required 3 999 [...] 3:40 PM EST Office Visit Family Practice [facility] [address] [place] [address] Alvarado Phillips MD [address] [place] [id number] Low back pain with radiation* Allergies No [...] PPD 05/02/2019 Pneumococcal Conjugate Vacci ne, 20-valent ([id number]) 12/26/2021 SEASONAL INFLUENZA, PF, 6 M & [...] 04/10/2023 2:20 PM EST Office Visit [facility] [address] [place] [address] Milli Fajardo CRNP [address] [place] [address] 10/05/2023 3:00 PM EDT Office Visit Gynecology/Obstetrics [facility] [address] [place] [address] Adilia Sharp PA-C [address] [place] [address] 01/04/2024 2:00 PM EDT Office Visit [facility] [address] [place] [address] Milli Fajardo CRNP [address] [place] [address] Scheduled Referrals Name Type Priority Associated Diagnoses [...] documented as of this encounter Care Teams Fuse Coiler Relationship Specialty Start Date End Date Milli Fajardo CRNP [address] [place] [address] PCP - General Nurse Practitioner 03/28/22 documented as of this encounter"
[2023-08-06] MEDS ORDERED: MAGNESIUM HYDROXIDE SUSP 30 ML UDC PO PRN (15:05)
[2023-08-06] MEDS ORDERED: SODIUM CHLORIDE 0.65% NA SOLN 45 ML (OCEAN) PRN (15:05)
[2023-08-06] MEDS ORDERED: hydrOXYzine HCl 25 MG TAB PO PRN ×2 (15:05)
[2023-08-06] MEDS ORDERED: BISMUTH SUBSALICYLATE LIQD 236 ML PO PRN (15:05)
[2023-08-06] MEDS: NICOTINE 21 MG/24 HR TDSY TD SCH (17:02)
[2023-08-06] MEDS: NICOTINE POLACRILEX 2 MG GUM MT PRN (19:34)
[2023-08-06] MEDS: ACETAMINOPHEN 325 MG TAB PO PRN (21:11)
[2023-08-06] MEDS ORDERED: NORETHINDRONE 5 MG TAB PO SCH (21:30)
[2023-08-06] MEDS: NON-FORMULARY PATIENT'S OWN MED SCH (22:02)
--- NOTE | 2023-08-07 08:46 | History & Physical ---
Date of Service August 07, 2023 Impression / Recommendations Impression Jolynn is a 22 year old woman with a history of self-harm, depression who was admitted for suicide attempt via overdose in context of academic struggles, strained relationship with her parents, pain from herniated disk in her back and increased alcohol and recreational stimulant use. Diagnostically consistent with unspecified depression with differential including Major Depressive Disorder with atypical features vs borderline personality disorder given eating disorder/ self-harm/social sensitivity history vs substance-induced or withdrawal depressive symptoms. She is deemed in need of psychiatric hospitalization for diagnostic clarification, safety and stabilization, medication management and development of further coping skills. Discussed medication treatment options in detail including SSRIs, SNRIs or Wellbutrin. She likes the idea of trying Wellbutrin but we discussed importance of ensuring her electrolytes have improved given this can lower seizure threshold. Confirmed no history of purging and no history of seizures. She tried it previously but this was in high school so she is interested in trying it again. The patient's audit score and use history suggests problematic substance use. [facility] intervention was offered and accepted. Intervention was greater than 5 minutes in length and included assessing readiness to quit, advice on how to reduce or abstain and to set a specific goal for this hospitalization. carnival worker will also assist in anticipating barriers to reducing or abstaining from substance use and in problem-solving for solutions to those problems while arranging for referral to appropriate treatment. The patient is in contemplative stage with regards to transtheoretical model of change. The patient is advised to decrease consumption due to depressant effects and risk of interaction with prescription medications. The patient agreed to reduce use and will be provided with recovery materials to continue to educate self on how to cope with their condition without using substances. Overall I spent a total of 78 minutes for this admission including review of chart records, review of labwork, direct evaluation of the patient, counseling the patient, ordering medication, risk assessment, discussion with the psychiatric liason RN and documentation in the electronic health record. (1) Suicide attempt: (2) NSAID overdose: (3) Depression, unspecified: (4) Alcohol use disorder: Plan 08/07/2023: The patient was admitted to the [facility] ([facility]) on q15 min checks (behavioral with suicide precautions) for safety. The patient will participate in group, recreational, and milieu therapies and will be offered additional individual and family sessions as clinically appropriate. -Adriana BPD screen -Consider Wellbutrin trial if labwork stabilizes (currently with low K+ and high Mag) -Electrolyte labwork tomorrow AM Inventory Assets Strengths: supportive relationships, willing to get treatment Needs: safety and stabilization, medication adjustment, additional coping skills, increased outpatient services Suicide Risk Level Suicide Risk Level: High-Moderate (q15 min suicide checks) (suicide attempt prior to admission but glad to be alive, feels safe in the hospital, able to safety contract and agrees to let nursing/staff know should they develop plan, intent or feel unable to remain safe.) Suicide Risk Level Comments: Risk Factors Assessment Male: No : Yes Do You Have Access To A Gun?: No Health Problems: Yes (herniated disk) Mental Health Diagnoses: Yes Substance Use Disorders: Yes Previous Attempt: Yes (leading to this admission) Previous Psychiatric Hospitalization: No Protective Factors Assessment Employed: Yes ([employer]) Stable Relationships: Yes Psychiatric History Identifying Data JOLYNN CEBALLOS is a 22-year-old woman and [employer] student has a history of depression, anxiety, self-harm and restrictive eating, and was admitted on 08/06/23 13:38 on a 201 voluntary commitment for suicide attempt overdose on Celebrex and alcohol. Chief Complaint "I've just been tired of feeling this pain I guess". History of Present Illness Jolynn was admitted following suicide attempt via overdose of Celebrex and in the context of alcohol use after texting Agilence messages to her parents and friends. She reports recent stressors including strain with her parents and academics. She notes that a likely trigger was a difficult conversation with her parents on Thursday in which she felt blamed and unsupported. She states she wasn't sure if she would but was ok with dying if that's what happened after taking the medications noting she had pain medications to take or " stomach pills". She has been misusing stimulants including Adderall, Ritalin and last week cocaine. Has been feeling depressed for the last 2 years with symptoms waxing and waning. She notes she hasn't been "fully happy" but also notes her mood can change quickly. She feels her mood change on Thursday "hit her suddenly" like a wave and that her attempt was quite impulsive. She's also been anxious recently especially socially related to friends like "how someone views me". She is not currently prescribed any psychiatric medications. Additional history per ED CM on 08/06/2023: "Pt reports experiencing increasing depression in the past month. Last night she went out with some friends, went back to her apartment and ingested approx. 15 of her prescribed Celebrex. She is vague when asked why she took the pills. She does not deny that it was a suicide attempt when asked. She shrugged her shoulders and stated I dont know. I just didnt want to feel the way I was feeling. Pt sent a text to her parents stating "I'm sorry guys. I love you". She also sent texts to two friends, but it is unknown what those texts said. However, one of those friends alerted her father who brought patient to the ER. She reports that her stressors are school and her relationship with her parents. She states her parents support her but they are not supportive in the right ways. Pt reports feeling constant pressure from her parents. They have been making comments such as your poor decisions and behaviors are leading in the wrong direction. Pt reports that she consumes alcohol 4x/week and drinks until she gets drunk but does not black out. Pt reports using stimulants such as Ritalin and/or Adderall (not prescribed). She reports that she has difficulty falling asleep and then sleeps all day. Her appetite is normal. Pt works at [employer], she reports going to work regularly but has not been attending classes regularly. 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 Pt reports not getting school work done, resulting in failed assignments. Pt lives with roommates who she does not get along with. She reports having a good friend group who provide support. Pt does not see any outside providers or therapists and does not take any medication (other than the Celebrex that is prescribed for herniated disk). She has a hx of cutting as self-injurious behavior but has not done so since last semester. She denies abuse/trauma. Pt is willing to sign in for treatment. Her parents live locally and are in the ER with patient and are supportive of inpatient treatment." Psychiatric ROS notable for no current nor history of symptoms of carleen nor psychosis nor PTSD. History of self-harm via cutting, none in last 5 months. History of anorexia, feels she is currently stable but sometimes will restrict for 1-2 days if she felt she overate the day previously. Denies any history of binging or purging. Past Psychiatric History Current Psychiatric Diagnosis: unspecified depression, hx anorexia and SIB Outpatient Services: none currently, in past saw [facility] psychiatric provider as a child Previous Psych Admissions: none Do You Have Access To A Gun?: No History of Previous Suicide Attempt: Yes (attempt leading to this admission ) Past Medication Trials: Wellbutrin SR 150mg in 2019 per med rec "recalls this might of made her feel numb", zoloft "for awhile" but felt like "I lost my spark". Past Head Trauma/Neuro History History of Concussion/Seizure: Yes hx of 4 concussions; no hx of seizures Allergies Allergy/AdvReac Type Severity Reaction Status Date / Time No Known Allergies Allergy Verified 02/17/20 10:40 Home Medications Medication Instructions Recorded Confirmed Type bupropion HCl 150 mg tablet,12 hr 150 mg PO QAM 12/02/19 02/17/20 History sustained-release (Wellbutrin SR) magnesium 250 mg tablet 250 mg PO BID 12/02/19 02/17/20 History melatonin 5 mg capsule 5 mg PO HS 12/02/19 02/17/20 History multivitamin (Daily Multi-Vitamin 1 tab PO QAM 12/02/19 02/17/20 History tablet) riboflavin (vitamin B2) 25 mg 50 mg PO BID 12/02/19 02/17/20 History tablet ondansetron HCl 8 mg tablet 8 mg PO Q8H PRN nausea and 02/09/20 02/17/20 Rx vomiting #10 tabs Family History Family History of: Doesn't Know Family Mental Health History Comment: Patient adopted Alcohol History Hx of Alcohol Use Over the Past 12 Months: Yes (4 x per week; drinks until intoxication) AUDIT Total Score: 12 She feels her alcohol use is age typical "being in college" and drinks socially with them, reports she rarely blackouts, one prior incidence of getting in trouble for her boyfriend being intoxicated in the dorm and she was also intoxicated. Smoking Use Have You Smoked or Used Tobacco Products in the Last 30 Days: Yes tobacco type: e-cigarettes and smokeless tobacco Smoking Status: Heavy tobacco smoker Smoking packs per day: 1 Substance History Hx of Prescription Med Misuse Over the Past 12 Months: Yes (overdose on prescribed celebrex) Hx of Over the Counter Med Misuse Over the Past 12 Months: No Hx of Inhalent Misuse Over the Past 12 Months: No Hx of Organic Substance Use Over the Past 12 Months: No Hx of Illegal Substances/Street Drug Use Over Past 12 Months: Yes (Ritalin and Adderal, cocaine) Problems as a Result of Past Substance Use: None Identified Cocaine only about once per year, used last weekend at [employer] weekend via snorting. She likes that it made her feel happy but denies "wanting it or becoming dependent on it". She likes the Ritalin and Adderall as "I can focus and don't get tired as easily". Personal History Living Arrangements: Apartment Childhood: Adopted. Raised in [place]. Feels her relationship with parents is strained due to authoritative parenting style. Highest Grade Completed: Some College ([employer]) Employment Status: Student (and [employer] department employed) Marital Status: Single Beliefs That Will Affect Care: None Current Legal Problems: No Hx Legal Problems: No Patient History Medical History Anxiety and depression Migraine Surgical History H/O wisdom tooth extraction 02/02 Dr. kent No history of previous surgery Family History Other Past medical history not known due to adoption Social History Smoking Status: Heavy tobacco smoker Second Hand Exposure: No; Hx Alcohol Use: No Hx Substance Use: No Preferred Language: Serbian Communication Ability: Effective Gear Machinist Required: No Beliefs That Will Affect Care: None marital status: Single current occupational status: student Feels Safe at Home: Yes Gender Identity: Female Assistive Devices: None Review of Systems Review of Systems: All systems reviewed & are unremarkable except as noted in HPI & below (back pain, slight headache which she attributes to nicotine withdrawal) Physical Exam Psychiatric: Orientation: alert and oriented x 3 Apperance: appropriately dressed and appropriately groomed Eye Contact: good eye contact Motor Behavior: no abnormal motor movements Speech: normal rate/rhythm/volume of speech Affect: + depressed affect and + constricted affect Mood: + depressed mood and + anxious mood Thought Process: goal directed thought process Thought Content: reality based without delusions Suicidal Thoughts: denies suicidal intent; + reports suicidal thoughts (intermittent t houghts) and + reports suicidal plan (s/p suicide attempt) Homicidal Thoughts: denies homicidal thoughts Hallucinations: no auditory hallucination s and no visual hallucinations Cognition: recent memory grossly intact, remote memory grossly intact, attention grossly intact and language grossly intact Estimated Intelligence: consistent with education level Insight: + limited insight Judgment: + limited judgement Vital Signs (Past 24 Hours): Last Vital Signs Temp 35.8 C L 08/07/23 06:00 Pulse 84 08/07/23 06:34 Resp 16 08/07/23 06:00 BP 96/66 L 08/07/23 06:34 Pulse Ox 100 08/06/23 15:10 O2 Del Method Room Air 08/06/23 15:10 O2 Flow Rate 98 08/06/23 03:31 Exam Statement: A physical exam was performed in the ED by Dr. Cardenas for the purposes of medical clearance. I accept that physical as correct and adequate for the purposes of the inpatient physical exam. Results & Data ([facility]) Current Inpatient Medications Current Inpatient Medications: Current Inpatient Medications Acetaminophen (Acetaminophen 325 Mg Tab) 650 mg PO Q4H PRN PRN Reason: Headache or Minor Fever Stop: 09/05/23 15:04 Last Admin: 08/06/23 21:11 Dose: 650 mg Al Hydrox/Mg Hydrox/Simethicone (Aluminum/Magnesium Susp 30 Ml Udc) 30 ml PO Q4H PRN PRN Reason: GI Upset Stop: 09/05/23 15:04 Bismuth Subsalicylate (Bismuth Subsalicylate Liqd 236 Ml) 15 ml PO PRN PRN PRN Reason: Loose Stool Stop: 09/05/23 15:04 Hydroxyzine HCl (Hydroxyzine Hcl 25 Mg Tab) 50 mg PO HSZ PRN PRN Reason: Insomnia Stop: 09/05/23 15:04 Hydroxyzine HCl (Hydroxyzine Hcl 25 Mg Tab) 25 mg PO Q4H PRN PRN Reason: Anxiety Stop: 09/05/23 15:04 Magnesium Hydroxide (Magnesium Hydroxide Susp 30 Ml Udc) 30 ml PO DAILY PRN PRN Reason: Constipation Stop: 09/05/23 15:04 Miscellaneous (Remove Nicoderm Patch) 1 each N/A DAILY@0859 [facility] Stop: 09/06/23 08:58 Nicotine (Nicotine 21 Mg/24 Hr Tdsy) 1 patch TD QAM [facility] Stop: 09/05/23 15:14 Last Admin: 08/06/23 17:02 Dose: 1 patch Nicotine Polacrilex (Nicotine Polacrilex 2 Mg Gum) 2 piece MT PRN PRN PRN Reason: Nicotine Withdrawal Symptoms Stop: 09/05/23 15:04 Last Admin: 08/06/23 19:34 Dose: 2 piece Non-Formulary Medication (Non-Formulary Patient's Own Med) 1 each N/A DAILY [facility] Stop: 09/05/23 22:14 Last Admin: 08/06/23 22:02 Dose: 1 tab Sodium Chloride (Sodium Chloride 0.65% Na Soln 45 Ml ([place])) 1 - 2 sprays NA PRN PRN PRN Reason: Nasal Dryness/Congestion Stop: 09/05/23 15:04
[2023-08-08 07:50] LABS: Magnesium 2.3 mg/dl (1.7-2.4); Potassium 4.3 mmol/L (3.5-5.1)
--- NOTE | 2023-08-08 12:11 | Psychiatric Progress Note ---
Date of Service August 08, 2023 Impression / Recommendations Impression Jolynn remains depressed. Electrolyte imbalance self-corrected. She is agreeable to a trial of Wellbutrin. We discussed potential side effects from the medications including but not limited to headaches restlessness insomnia. We also discuss concerns regarding the use of antidepressants in and risk for worsening anxiety and development of suicidal ideation, developing development of psychosis, switch to carleen. The medication will be started tomorrow morning. Overall I spent 30 minutes for this evaluation including review of chart records, review of lab work, ordering medication, discussion with RN, and documentation in the electronic medical record. (1) Suicidal ideation: (2) Alcohol use disorder: (3) Depression, unspecified: (4) NSAID overdose: (5) Suicide attempt: Plan DEPRESSION: Continued inpatient hospitalization is medically necessary for ongoing monitoring and safety. Continue suicide precautions. Start Wellbutrin SR 150 mg every morning first dose 08/09/2023. Monitor mood changes and sleep pattern. PAIN: Patient is receiving as needed Tylenol. I offered ibuprofen or naproxen however she reported that NSAIDs caused GI discomfort in the past. Inventory Assets Strengths: supportive relationships, willing to get treatment Needs: safety and stabilization, medication adjustment, additional coping skills, increased outpatient services Suicide Risk Level Suicide Risk Level: High-Moderate (q15 min suicide checks) (suicide attempt prior to admission but glad to be alive, feels safe in the hospital, able to safety contract and agrees to let nursing/staff know should they develop plan, intent or feel unable to remain safe.) Suicide Risk Level Comments: Risk Factors Assessment Male: No : Yes Do You Have Access To A Gun?: No Health Problems: Yes (herniated disk) Mental Health Diagnoses: Yes Substance Use Disorders: Yes Previous Attempt: Yes (leading to this admission) Previous Psychiatric Hospitalization: No Protective Factors Assessment Employed: Yes ([employer]) Stable Relationships: Yes Interval History Identifying Information JOLYNN CEBALLOS is a 22-year-old F with a history of self-harm, substance use, and depression who was admitted for suicide attempt via overdose in context of academic stressors. Chief Complaint "I was hoping to start the medication if my labs came back" Review of Systems Notes Constitutional: Fatigue + Musculoskeletal: Lower back pain (chronic) Cardiovascular: Denies chest pain Neurological: Denied headaches Sleep Information Total Hours of Sleep: 6.5 Sleep Comments: No PRNS given Meal Information Percent Meal Consumed - Breakfast: 100 Percent Meal Consumed - Lunch: 100 Percent Meal Consumed - Dinner: 100 Subjective Subjective Patient was seen & assessed and interval progress reviewed with nursing. During our encounter Jolynn complained about feeling depressed lack of energy and motivation she has been in bed all morning. She did complain about back pain (chronic). Jolynn denied symptoms consistent with anxiety psychosis or carleen. Medication Trials Risks/benefits/alternatives reviewed re: antidepressants for the treatment of depression and/or anxiety. Discussion included but was not limited to FDA warnings re: suicidality in adolescents and young adults. The patient agreed to a trial of Wellbutrin Physical Exam Psychiatric Orientation: alert and oriented x 3 Apperance: + disheveled (in bed all morning.) Eye Contact: good eye contact Motor Behavior: no abnormal motor movements Speech: normal rate/rhythm/volume of speech Affect: + depressed affect Mood: + depressed mood Thought Process: goal directed thought process Thought Content: no preoccupation, no delusions and no hopelessness Suicidal Thoughts: denies suicidal thoughts Homicidal Thoughts: denies homicidal thoughts Hallucinations: no auditory hallucinations Cognition: attention grossly intact Estimated Intelligence: average estimated intelligence Insight: + fair insight Judgment: + fair judgement Vital Signs (Past 24 Hours) Last Vital Signs Temp 36.9 C 08/08/23 06:30 Pulse 76 08/08/23 06:30 Resp 16 08/08/23 06:30 BP 99/62 L 08/08/23 06:30 Pulse Ox 100 08/06/23 15:10 O2 Del Method Room Air 08/06/23 15:10 O2 Flow Rate 98 08/06/23 03:31 Results & Data ([facility]) Laboratory Results Laboratory Results - last 24 hr 08/08/23 07:04 Sodium 137 Potassium 4.3 Chloride 106 Carbon Dioxide 26 Anion Gap 5 Magnesium 2.3 Current Inpatient Medications Current Inpatient Medications: Current Inpatient Medications Acetaminophen (Acetaminophen 325 Mg Tab) 650 mg PO Q4H PRN PRN Reason: Headache or Minor Fever Stop: 09/05/23 15:04 Last Admin: 08/07/23 16:49 Dose: 650 mg Al Hydrox/Mg Hydrox/Simethicone (Aluminum/Magnesium Susp 30 Ml Udc) 30 ml PO Q4H PRN PRN Reason: GI Upset Stop: 09/05/23 15:04 Bacitracin (Bacitracin Oint 0.9 Gm Pkt) 1 appln EXT BID PRN PRN Reason: ear piercing Stop: 09/07/23 10:10 Bismuth Subsalicylate (Bismuth Subsalicylate Liqd 236 Ml) 15 ml PO PRN PRN PRN Reason: Loose Stool Stop: 09/05/23 15:04 Hydroxyzine HCl (Hydroxyzine Hcl 25 Mg Tab) 50 mg PO HSZ PRN PRN Reason: Insomnia Stop: 09/05/23 15:04 Hydroxyzine HCl (Hydroxyzine Hcl 25 Mg Tab) 25 mg PO Q4H PRN PRN Reason: Anxiety Stop: 09/05/23 15:04 Magnesium Hydroxide (Magnesium Hydroxide Susp 30 Ml Udc) 30 ml PO DAILY PRN PRN Reason: Constipation Stop: 09/05/23 15:04 Miscellaneous (Remove Nicoderm Patch) 1 each N/A DAILY@0859 [facility] Stop: 09/06/23 08:58 Last Admin: 08/08/23 09:06 Dose: Not Given Nicotine (Nicotine 21 Mg/24 Hr Tdsy) 1 patch TD QAM NEIS[facility] Stop: 09/05/23 15:14 Last Admin: 08/08/23 09:05 Dose: 1 patch Nicotine Polacrilex (Nicotine Polacrilex 2 Mg Gum) 2 piece MT PRN PRN PRN Reason: Nicotine Withdrawal Symptoms Stop: 09/05/23 15:04 Last Admin: 08/07/23 14:32 Dose: 2 piece Non-Formulary Medication (Non-Formulary Patient's Own Med) 1 each N/A DAILY [facility] Stop: 09/05/23 22:14 Last Admin: 08/08/23 09:01 Dose: 1 tab Sodium Chloride (Sodium Chloride 0.65% Na Soln 45 Ml ([place])) 1 - 2 sprays NA PRN PRN PRN Reason: Nasal Dryness/Congestion Stop: 09/05/23 15:04 Mental Health & Subst Abuse Tx Therapist Name of Therapist: None Fmd Teacher Name of Fmd Teacher: None Post Discharge Appointments Primary Care Physician Name Of Family Doctor/PCP: NELLY ROS Review of Systems Review of Systems: Constitutional: Fatigue Musculoskeletal: Lower back pain Cardiovascular: Denies chest pain Respiratory: Denied shortness of breath (3) Depression, unspecified Depression Type: unspecified Qualified Code(s): F32.A - Depression, unspecified (4) NSAID overdose Encounter type: subsequent encounter Injury intent: intentional self-harm Qualified Code(s): T39.392D - Poisoning by other nonsteroidal anti-inflammatory drugs [NSAID], intentional self-harm, subsequent encounter
[2023-08-09] MEDS: buPROPion SR 150 MG TABCR PO SCH (08:50)
[2023-08-09] MEDS: BACITRACIN OINT 0.9 GM PKT EXT PRN (10:33)
--- NOTE | 2023-08-09 15:45 | Psychiatric Progress Note ---
Date of Service August 09, 2023 Impression / Recommendations Impression No side effects after initial dose of medication. Very rapid mood change. Will need observation to evaluate for carleen diathesis. Discharge planning has been initiated. Overall I spent 25 minutes for this evaluation including review of chart records, discussion with RN, and documentation in the electronic medical record. (1) Suicidal ideation: (2) Alcohol use disorder: (3) Depression, unspecified: (4) NSAID overdose: (5) Suicide attempt: Plan DEPRESSION: Continued inpatient hospitalization is medically necessary for ongoing monitoring and safety. Continue suicide precautions. Continue Wellbutrin SR 150 mg every morning (first dose given 08/09/2023). Monitor mood changes and sleep pattern. PAIN:Did not complain of pain. Inventory Assets Strengths: supportive relationships, willing to get treatment Needs: safety and stabilization, medication adjustment, additional coping skills, increased outpatient services Suicide Risk Level Suicide Risk Level: High-Moderate (q15 min suicide checks) (suicide attempt prior to admission but glad to be alive, feels safe in the hospital, able to safety contract and agrees to let nursing/staff know should they develop plan, intent or feel unable to remain safe.) Suicide Risk Level Comments: Risk Factors Assessment Male: No : Yes Do You Have Access To A Gun?: No Health Problems: Yes (herniated disk) Mental Health Diagnoses: Yes Substance Use Disorders: Yes Previous Attempt: Yes (leading to this admission) Previous Psychiatric Hospitalization: No Protective Factors Assessment Employed: Yes ([employer]) Stable Relationships: Yes Interval History Identifying Information JOLYNN CEBALLOS is a 22-year-old F with a history of self-harm, substance use, and depression who was admitted for suicide attempt via overdose in context of academic stressors. Chief Complaint "I am feeling better. I was able to get out of bed. Yesterday I had a good visit." Review of Systems Sleep Information Total Hours of Sleep: 6.5 Sleep Comments: No PRNS given Meal Information Percent Meal Consumed - Breakfast: 100 Percent Meal Consumed - Lunch: 50 Percent Meal Consumed - Dinner: 100 Medication Trials Risks/benefits/alternatives reviewed re: antidepressants for the treatment of depression and/or anxiety. Discussion included but was not limited to FDA warnings re: suicidality in adolescents and young adults. The patient agreed to a trial of Wellbutrin Subjective Subjective Patient was seen & assessed and interval progress reviewed with nursing. Jolynn indicated that her parents visited yesterday. She stated that the visit went well. And described having a good conversation with her father but not so much with her mother. She interprets that her mother may be feeling upset because of a desired that Jolynn be more proactive seeking help and therapy. Jolynn shared that when she is told to go to therapy if she feels pressured and is less likely to do what she has to do. She also shared that her father goes to therapy currently and appears to understand her better than her mother at this point. However, she is stated that her parents are "on my side, on my team." In terms of medication, Jolynn was able to start Wellbutrin this morning. Denies any side effect. When asked to describe her mood, she stated "I feel really good." There is no evidence of carleen or psychosis. She believes some of the mood improvement may related to placebo effect and improved energy level. Family is aware that there is a treatment team meeting with her parents tomorrow. She has requested assistance to set up her next steps to reintroduce herself to her academic endeavors and wants to know what is the school recommendation for her given that the week of finals is approaching. Medication Trials Risks/benefits/alternatives reviewed re: antidepressants for the treatment of depression and/or anxiety. Discussion included but was not limited to FDA warnings re: suicidality in adolescents and young adults. The patient agreed to a trial of Wellbutrin Physical Exam Psychiatric Orientation: alert and oriented x 3 Apperance: appropriately dressed and appropriately groomed Eye Contact: good eye contact Motor Behavior: no abnormal motor movements Speech: normal rate/rhythm/volume of speech Affect: euthymic affect; no depressed affect Mood: no depressed mood, no anxious mood and no irritable mood Thought Process: goal directed thought process Thought Content: reality based without delusions; no preoccupation, no delusions and no hopelessness Suicidal Thoughts: denies suicidal thoughts Homicidal Thoughts: denies homicidal thoughts Hallucinations: no auditory hallucinations and no visual hallucinations Cognition: recent memory grossly intact, remote memory grossly intact, attention grossly intact and language grossly intact Estimated Intelligence: average estimated intelligence and consistent with education level Insight: + fair insight Judgment: + fair judgement Vital Signs (Past 24 Hours) Last Vital Signs Temp 37 C 08/09/23 06:31 Pulse 80 08/09/23 06:32 Resp 16 08/09/23 06:31 BP 100/66 08/09/23 06:32 Pulse Ox 100 08/06/23 15:10 O2 Del Method Room Air 08/06/23 15:10 O2 Flow Rate 98 08/06/23 03:31 Results & Data ([facility]) Current Inpatient Medications Current Inpatient Medications: Current Inpatient Medications Acetaminophen (Acetaminophen 325 Mg Tab) 650 mg PO Q4H PRN PRN Reason: Headache or Minor Fever Stop: 09/05/23 15:04 Last Admin: 08/07/23 16:49 Dose: 650 mg Al Hydrox/Mg Hydrox/Simethicone (Aluminum/Magnesium Susp 30 Ml Udc) 30 ml PO Q4H PRN PRN Reason: GI Upset Stop: 09/05/23 15:04 Bacitracin (Bacitracin Oint 0.9 Gm Pkt) 1 appln EXT BID PRN PRN Reason: ear piercing Stop: 09/07/23 10:10 Last Admin: 08/09/23 10:33 Dose: 1 appln Bismuth Subsalicylate (Bismuth Subsalicylate Liqd 236 Ml) 15 ml PO PRN PRN PRN Reason: Loose Stool Stop: 09/05/23 15:04 Bupropion HCl (Bupropion Sr 150 Mg Tabcr) 150 mg PO QAM [facility] Stop: 09/08/23 08:59 Last Admin: 08/09/23 08:50 Dose: 150 mg Hydroxyzine HCl (Hydroxyzine Hcl 25 Mg Tab) 50 mg PO HSZ PRN PRN Reason: Insomnia Stop: 09/05/23 15:04 Hydroxyzine HCl (Hydroxyzine Hcl 25 Mg Tab) 25 mg PO Q4H PRN PRN Reason: Anxiety Stop: 09/05/23 15:04 Magnesium Hydroxide (Magnesium Hydroxide Susp 30 Ml Udc) 30 ml PO DAILY PRN PRN Reason: Constipation Stop: 09/05/23 15:04 Miscellaneous (Remove Nicoderm Patch) 1 each N/A DAILY@0859 [facility] Stop: 09/06/23 08:58 Last Admin: 08/09/23 08:55 Dose: 1 each Nicotine (Nicotine 21 Mg/24 Hr Tdsy) 1 patch TD QAM [facility] Stop: 09/05/23 15:14 Last Admin: 08/09/23 08:55 Dose: 1 patch Nicotine Polacrilex (Nicotine Polacrilex 2 Mg Gum) 2 piece MT PRN PRN PRN Reason: Nicotine Withdrawal Symptoms Stop: 09/05/23 15:04 Last Admin: 08/07/23 14:32 Dose: 2 piece Non-Formulary Medication (Non-Formulary Patient's Own Med) 1 each N/A DAILY [facility] Stop: 09/05/23 22:14 Last Admin: 08/09/23 08:50 Dose: 1 tab Sodium Chloride (Sodium Chloride 0.65% Na Soln 45 Ml ([place])) 1 - 2 sprays NA PRN PRN PRN Reason: Nasal Dryness/Congestion Stop: 09/05/23 15:04 Mental Health & Subst Abuse Tx Therapist Name of Therapist: None Fire Suppression Captain Name of Fire Suppression Captain: None Post Discharge Appointments Primary Care Physician Name Of Family Doctor/PCP: NELLY (3) Depression, unspecified Depression Type: unspecified Qualified Code(s): F32.A - Depression, unspecified (4) NSAID overdose Encounter type: subsequent encounter Injury intent: intentional self-harm Qualified Code(s): T39.392D - Poisoning by other nonsteroidal anti-inflammatory drugs [NSAID], intentional self-harm, subsequent encounter
[2023-08-09] MEDS: ALUMINUM/MAGNESIUM SUSP 30 ML UDC PO PRN (17:50)
[2023-08-09] MEDS ORDERED: LACTASE 3000 UNIT TAB PO PRN (18:01)
--- NOTE | 2023-08-10 13:31 | Psychiatric Progress Note ---
Date of Service August 10, 2023 Impression / Recommendations Impression No side effects after initial dose of medication. NO evidence of symptoms consistent with carleen or psychosis. Showing improvement. Discharge planning has been initiated. Overall I spent 25 minutes for this evaluation including review of chart records, direct patient evaluation, discussion with RN, and documentation in the electronic medical record. (1) Suicidal ideation: (2) Alcohol use disorder: (3) Depression, unspecified: (4) NSAID overdose: (5) Suicide attempt: Plan 08/10/23 Continue Wellbutrin SR 150 mg every morning GI symptoms treated with PRN meds, will monitor 08/09/23 Continued inpatient hospitalization is medically necessary for ongoing monitoring and safety. Continue suicide precautions. Continue Wellbutrin SR 150 mg every morning (first dose given 08/09/2023). Monitor mood changes and sleep pattern. Inventory Assets Strengths: supportive relationships, willing to get treatment Needs: safety and stabilization, medication adjustment, additional coping skills, increased outpatient services Suicide Risk Level Suicide Risk Level: High-Moderate (q15 min suicide checks) (suicide attempt prior to admission but glad to be alive, feels safe in the hospital, able to safety contract and agrees to let nursing/staff know should they develop plan, intent or feel unable to remain safe.) Suicide Risk Level Comments: Risk Factors Assessment Male: No : Yes Do You Have Access To A Gun?: No Health Problems: Yes (herniated disk) Mental Health Diagnoses: Yes Substance Use Disorders: Yes Previous Attempt: Yes (leading to this admission) Previous Psychiatric Hospitalization: No Protective Factors Assessment Employed: Yes ([employer]) Stable Relationships: Yes Interval History Identifying Information JAI CEBALLOS is a 22-year-old F with a history of self-harm, substance use, and depression who was admitted for suicide attempt via overdose in context of academic stressors. Chief Complaint "I am ok". Review of Systems Sleep Information Total Hours of Sleep: 6.5 Sleep Comments: No PRNS given Meal Information Percent Meal Consumed - Breakfast: 50 Percent Meal Consumed - Lunch: 50 Percent Meal Consumed - Dinner: 45 Medication Trials Risks/benefits/alternatives reviewed re: antidepressants for the treatment of depression and/or anxiety. Discussion included but was not limited to FDA warnings re: suicidality in adolescents and young adults. The patient agreed to a trial of Wellbutrin Subjective Subjective Patient was seen & assessed and interval progress reviewed with treatment team, nursing and social work. GI upset started Thursday and worsened yesterday but feels better today. Had one episode of diarrhea, no n/v. Mood remains stable. Denied side effects from the medication. Medication Trials Risks/benefits/alternatives reviewed re: antidepressants for the treatment of depression and/or anxiety. Discussion included but was not limited to FDA warnings re: suicidality in adolescents and young adults. The patient agreed to a trial of Wellbutrin Physical Exam Psychiatric Orientation: alert and oriented x 3 Apperance: appropriately dressed, appropriately groomed and + disheveled (in bed all morning.) Eye Contact: good eye contact Motor Behavior: no abnormal motor movements Speech: normal rate/rhythm/volume of speech Affect: euthymic affect; no depressed affect Mood: no depressed mood, no anxious mood and no irritable mood Thought Process: goal directed thought process Thought Content: reality based without delusions; no preoccupation, no delusions and no hopelessness Suicidal Thoughts: denies suicidal thoughts Homicidal Thoughts: denies homicidal thoughts Hallucinations: no auditory hallucinations and no visual hallucinations Cognition: recent memory grossly intact, remote memory grossly intact, attention grossly intact and language grossly intact Estimated Intelligence: average estimated intelligence and consistent with education level Insight: good insight Judgment: + fair judgement Vital Signs (Past 24 Hours) Last Vital Signs Temp 36.9 C 08/10/23 06:31 Pulse 76 08/10/23 06:31 Resp 16 08/10/23 06:31 BP 94/57 L 08/10/23 06:31 Pulse Ox 100 08/06/23 15:10 O2 Del Method Room Air 08/06/23 15:10 O2 Flow Rate 98 08/06/23 03:31 Results & Data ([facility]) Current Inpatient Medications Current Inpatient Medications: Current Inpatient Medications Acetaminophen (Acetaminophen 325 Mg Tab) 650 mg PO Q4H PRN PRN Reason: Headache or Minor Fever Stop: 09/05/23 15:04 Last Admin: 08/07/23 16:49 Dose: 650 mg Al Hydrox/Mg Hydrox/Simethicone (Aluminum/Magnesium Susp 30 Ml Udc) 30 ml PO Q4H PRN PRN Reason: GI Upset Stop: 09/05/23 15:04 Last Admin: 08/09/23 17:50 Dose: 30 ml Bacitracin (Bacitracin Oint 0.9 Gm Pkt) 1 appln EXT BID PRN PRN Reason: ear piercing Stop: 09/07/23 10:10 Last Admin: 08/10/23 13:05 Dose: 1 appln Bismuth Subsalicylate (Bismuth Subsalicylate Liqd 236 Ml) 15 ml PO PRN PRN PRN Reason: Loose Stool Stop: 09/05/23 15:04 Bupropion HCl (Bupropion Sr 150 Mg Tabcr) 150 mg PO QAM [facility] Stop: 09/08/23 08:59 Last Admin: 08/10/23 08:34 Dose: 150 mg Hydroxyzine HCl (Hydroxyzine Hcl 25 Mg Tab) 50 mg PO HSZ PRN PRN Reason: Insomnia Stop: 09/05/23 15:04 Hydroxyzine HCl (Hydroxyzine Hcl 25 Mg Tab) 25 mg PO Q4H PRN PRN Reason: Anxiety Stop: 09/05/23 15:04 Lactase (Lactase 3000 Unit Tab) 3,000 units PO TIDM PRN PRN Reason: GI Upset Stop: 09/08/23 18:00 Magnesium Hydroxide (Magnesium Hydroxide Susp 30 Ml Udc) 30 ml PO DAILY PRN PRN Reason: Constipation Stop: 09/05/23 15:04 Miscellaneous (Remove Nicoderm Patch) 1 each N/A DAILY@0859 [facility] Stop: 09/06/23 08:58 Last Admin: 08/10/23 08:36 Dose: Not Given Nicotine (Nicotine 21 Mg/24 Hr Tdsy) 1 patch TD QAM [facility] Stop: 09/05/23 15:14 Last Admin: 08/10/23 08:33 Dose: 1 patch Nicotine Polacrilex (Nicotine Polacrilex 2 Mg Gum) 2 piece MT PRN PRN PRN Reason: Nicotine Withdrawal Symptoms Stop: 09/05/23 15:04 Last Admin: 08/07/23 14:32 Dose: 2 piece Non-Formulary Medication (Non-Formulary Patient's Own Med) 1 each N/A DAILY [facility] Stop: 09/05/23 22:14 Last Admin: 08/10/23 08:34 Dose: 1 tab Sodium Chloride (Sodium Chloride 0.65% Na Soln 45 Ml ([place])) 1 - 2 sprays NA PRN PRN PRN Reason: Nasal Dryness/Congestion Stop: 09/05/23 15:04 Mental Health & Subst Abuse Tx Psychiatrist Name of Psychiatrist: [facility] Date Of Appointment With Psychiatric Provider: 08/17/23 Time of Appointment with Psychiatrist: 12:45pm Psychiatric Appointment Comment: [address] [place] [address] Therapist Name of Therapist: [facility] Date of Therapist Appointment: 08/18/23Thursday Time of Therapist Appointment: 4:00PM (arrive at 3:30) Therapy Appointment Comment: [address], [place] [address] Senior Account Clerk Name of Senior Account Clerk: [facility] Phone Number for Senior Account Clerk: [phone] Date of Appointment with Senior Account Clerk: 08/12/23 Time of Appointment with Senior Account Clerk: 2:15pm Case Management Appointment Comment: Zoom link will be sent to [facility] email Post Discharge Appointments Primary Care Physician Name Of Family Doctor/PCP: Felicita Contact Information Discharge Discharge [address]: [address] [place] [id number] (3) Depression, unspecified Depression Type: unspecified Qualified Code(s): F32.A - Depression, uns pecified (4) NSAID overdose Encounter type: subsequent encounter Injury intent: intentional self-harm Qualified Code(s): T39.392D - Poisoning by other nonsteroidal anti-inflammatory drugs [NSAID], intentional self-harm, subsequent encounter
--- NOTE | 2023-08-11 08:58 | Discharge Summary ---
Date of Service August 11, 2023 History of Present Illness Jolynn was admitted following suicide attempt via overdose of Celebrex and in the context of alcohol use after texting Modria messages to her parents and friends. She reports recent stressors including strain with her parents and academics. She notes that a likely trigger was a difficult conversation with her parents on Thursday in which she felt blamed and unsupported. She states she wasn't sure if she would but was ok with dying if that's what happened after taking the medications noting she had pain medications to take or " stomach pills". She has been misusing stimulants including Adderall, Ritalin and last week cocaine. Has been feeling depressed for the last 2 years with symptoms waxing and waning. She notes she hasn't been "fully happy" but also notes her mood can change quickly. She feels her mood change on Thursday "hit her suddenly" like a wave and that her attempt was quite impulsive. She's also been anxious recently especially socially related to friends like "how someone views me". She is not currently prescribed any psychiatric medications. Additional history per ED CM on 08/06/2023: "Pt reports experiencing increasing depression in the past month. Last night she went out with some friends, went back to her apartment and ingested approx. 15 of her prescribed Celebrex. She is vague when asked why she took the pills. She does not deny that it was a suicide attempt when asked. She shrugged her shoulders and stated I dont know. I just didnt want to feel the way I was feeling. Pt sent a text to her parents stating "I'm sorry guys. I love you". She also sent texts to two friends, but it is unknown what those texts said. However, one of those friends alerted her father who brought patient to the ER. She reports that her stressors are school and her relationship with her parents. She states her parents support her but they are not supportive in the right ways. Pt reports feeling constant pressure from her parents. They have been making comments such as your poor decisions and behaviors are leading in the wrong direction. Pt reports that she consumes alcohol 4x/week and drinks until she gets drunk but does not black out. Pt reports using stimulants such as Ritalin and/or Adderall (not prescribed). She reports that she has difficulty falling asleep and then sleeps all day. Her appetite is normal. Pt works at [employer], she reports going to work regularly but has not been attending classes regularly. 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 Pt reports not getting school work done, resulting in failed assignments. Pt lives with roommates who she does not get along with. She reports having a good friend group who provide support. Pt does not see any outside providers or therapists and does not take any medication (other than the Celebrex that is prescribed for herniated disk). She has a hx of cutting as self-injurious behavior but has not done so since last semester. She denies abuse/trauma. Pt is willing to sign in for treatment. Her parents live locally and are in the ER with patient and are supportive of inpatient treatment." Psychiatric ROS notable for no current nor history of symptoms of carleen nor psychosis nor PTSD. History of self-harm via cutting, none in last 5 months. History of anorexia, feels she is currently stable but sometimes will restrict for 1-2 days if she felt she overate the day previously. Denies any history of binging or purging. Physical Exam Mental Examination Appearance: Well Groomed Eye Contact: Maintains Eye Contact Motor Behavior: Unremarkable Speech: Normal Mood: Sad and Tearful Affect: Blunted and Sad Thought Process: Intact Insight: Fair Judgement: Poor Psychiatric Orientation: alert and oriented x 3 Apperance: appropriately dressed, appropriately groomed and + disheveled (in bed all morning.) Eye Contact: good eye contact Motor Behavior: no abnormal motor movements Speech: normal rate/rhythm/volume of speech Affect: euthymic affect; no depressed affect Mood: no depressed mood, no anxious mood and no irritable mood Thought Process: goal directed thought process Thought Content: reality based without delusions; no preoccupation, no delusions and no hopelessness Suicidal Thoughts: denies suicidal thoughts Homicidal Thoughts: denies homicidal thoughts Hallucinations: no auditory hallucinations and no visual hallucinations Cognition: recent memory grossly intact, remote memory grossly intact, attention grossly intact and language grossly intact Estimated Intelligence: average estimated intelligence and consistent with education level Insight: good insight Judgment: good judgement Vital Signs (Past 24 Hours) Last Vital Signs Temp 37.5 C 08/11/23 06:36 Pulse 112 H 08/11/23 06:37 Resp 16 04/23/24 06:36 BP 106/48 L 08/11/23 06:37 Pulse Ox 100 08/06/23 15:10 O2 Del Method Room Air 08/06/23 15:10 O2 Flow Rate 98 08/06/23 03:31 Principal Diagnosis Major depressive DO Stimulant use DO Psychiatric Data See daily stay summary. In short, safety was maintained and the patient was cooperative with care. Medication changes included Starting Wellbutrin 150mg qam (she had used this same dose in 2019) and tolerated this well both times. A family session was 08/11/23 and safety plan was completed prior to discharge. Day of Discharge Assessment Today the patient voices readiness for discharge. They note improvement in mood and deny thoughts to harm self or others. Thoughts remain organized and they are improved from admission. There is no evidence of psychosis. They agree to take mediations as prescribed and keep follow-up appointments. They are stable for discharge to outpatient level of care. * Patient woke up with low grade fever and headache. It dissipated later during the day. She was recommended to monitor and see PCP. Overall I spent 30 minutes for this evaluation including review of chart records, direct patient evaluation, discussion with SW, and documentation in the electronic medical record. Transition of Care Transition Of Care Record: was reviewed with the patient Advance Directives Advance Directives Information Provided: Yes Advance Directives: No Mental Health Advance Directive: No Advance Directives on File: No Living Will: No Power of Otorhinolaryngologist: No Advance Directives Reason:: Declines as Mental Health Visit. Suicide Risk Level Suicide Risk Level Comments: Today the patient voices readiness for discharge. They note improvement in mood and deny thoughts to harm self or others. Thoughts remain organized and they are improved from admission. There is no evidence of psychosis. They agree to take mediations as prescribed and keep follow-up appointments. They are stable for discharge to outpatient level of care. Imminent risk is low. Risk Factors Assessment Male: No : Yes Do You Have Access To A Gun?: No Health Problems: Yes (herniated disk) Mental Health Diagnoses: Yes Substance Use Disorders: Yes Previous Attempt: Yes (leading to this admission) Previous Psychiatric Hospitalization: No Protective Factors Assessment Employed: Yes ([email or web address]) Stable Relationships: Yes Supportive Family: Yes Discharge Data Lab Results 08/06/23 08/06/2324 02:45 03:02 04:20 WBC 7.18 RBC 4.74 Hgb 14.4 Hct 42.5 MCV 89.7 MCH 30.4 MCHC 33.9 RDW Std Deviation 41.8 RDW Coeff of Kt 12.5 Plt Count 316 MPV 10.0 Immature Gran % (Auto) 0.4 Neut % (Auto) 63.1 Lymph % (Auto) 32.0 [place] % (Auto) 3.8 Eos % (Auto) 0.3 Baso % (Auto) 0.4 Neut # (Auto) 4.53 Lymph # (Auto) 2.30 [place] # (Auto) 0.27 Eos # (Auto) 0.02 Baso # (Auto) 0.03 Immature Gran # (Auto) 0.03 Sodium 142 Potassium 3.2 L Chloride 110 H Carbon Dioxide 22 Anion Gap 10 BUN 8 Creatinine 0.75 Est Cr Clr Drug Dosing 99.0 Est GFR ( Amer) 133.0 Est GFR (Non-Af Amer) 114.7 BUN/Creatinine Ratio 10.7 Glucose 108 H Calcium 9.6 Magnesium 2.6 H Total Bilirubin 0.2 AST 25 ALT 21 Alkaline Phosphatase 61 Total Protein 8.0 Albumin 4.8 Globulin 3.2 Albumin/Globulin Ratio 1.5 HCG, Qual Negative Urine Color Yellow Urine Appearance Clear Urine pH 6.0 Ur Specific [place] 1.003 Urine Protein Negative Urine Glucose (UA) Negative Urine Ketones Negative Urine Blood Negative Urine Nitrite Negative Urine Bilirubin Negative Urine Urobilinogen Negative Ur Leukocyte Esterase 1+ H Urine WBC (Auto) 6-10 H Urine RBC (Auto) 0-2 U Hyaline Cast (Auto) 0-2 U Epithel Cells (Auto) 0-2 Urine Bacteria (Auto) None Seen Salicylates < 3.0 L Urine Opiates Screen Neg Ur Methadone, Qual Neg Acetaminophen < 3 L Urine Barbiturates Neg Ur Phencyclidine (PCP) Neg U Amphetamin/Meth Scrn Neg MDMA (Ecstasy) Screen Neg U Benzodiazepines Scrn Neg Ur Cocaine Metabolite Neg U Marijuana (THC) Screen Neg Ethyl Alcohol mg/dL 184.1 H SARS-CoV-2, RNA, NAAT 08/06/23 08/08/23 Unknown 07:04 WBC RBC Hgb Hct MCV MCH MCHC RDW Std Deviation RDW Coeff of Kt Plt Count MPV Immature Gran % (Auto) Neut % (Auto) Lymph % (Auto) [place] % (Auto) Eos % (Auto) Baso % (Auto) Neut # (Auto) Lymph # (Auto) [place] # (Auto) Eos # (Auto) Baso # (Auto) Immature Gran # (Auto) Sodium 137 Potassium 4.3 Chloride 106 Carbon Dioxide 26 Anion Gap 5 BUN Creatinine Est Cr Clr Drug Dosing Est GFR ( Amer) Est GFR (Non-Af Amer) BUN/Creatinine Ratio Glucose Calcium Magnesium 2.3 Total Bilirubin AST ALT Alkaline Phosphatase Total Protein Albumin Globulin Albumin/Globulin Ratio HCG, Qual Urine Color Urine Appearance Urine pH Ur Specific [place] Urine Protein Urine Glucose (UA) Urine Ketones Urine Blood Urine Nitrite Urine Bilirubin Urine Urobilinogen Ur Leukocyte Esterase Urine WBC (Auto) Urine RBC (Auto) U Hyaline Cast (Auto) U Epithel Cells (Auto) Urine Bacteria (Auto) Salicylates Urine Opiates Screen Ur Methadone, Qual Acetaminophen Urine Barbiturates Ur Phencyclidine (PCP) U Amphetamin/Meth Scrn MDMA (Ecstasy) Screen U Benzodiazepines Scrn Ur Cocaine Metabolite U Marijuana (THC) Screen Ethyl Alcohol mg/dL SARS-CoV-2, RNA, NAAT NEGATIVE Hospital Course (1) Suicidal ideation: (2) Alcohol use disorder: (3) Depression, unspecified: (4) NSAID overdose: (5) Suicide attempt: Plan 08/11/23 Discharge today Continue Wellbutrin SR 150 mg every morning monitor low grade fever and cold symptoms 08/10/23 Continue Wellbutrin SR 150 mg every morning GI symptoms treated with PRN meds, will monitor 08/09/23 Continued inpatient hospitalization is medically necessary for ongoing monitoring and safety. Continue suicide precautions. Continue Wellbutrin SR 150 mg every morning (first dose given 08/09/2023). Monitor mood changes and sleep pattern. Mental Health & Subst Abuse Tx Psychiatrist Name of Psychiatrist: [facility] Psychiatrist's Date Of Appointment With Psychiatric Provider: 08/17/23 Time of Appointment with Psychiatrist: 12:45pm Psychiatric Appointment Comment: [address] [place] [address] Therapist Name of Therapist: Tonio Albright- Therapist's Date of Therapist Appointment: 08/18/23Thursday Time of Therapist Appointment: 4:00PM (arrive at 3:30) Therapy Appointment Comment: [address], [place], [place] [address] Administrative Receptionist Name of Administrative Receptionist: [facility] Phone Number for Administrative Receptionist: [phone] Date of Appointment with Administrative Receptionist: 08/12/23 Time of Appointment with Administrative Receptionist: 2:15pm Case Management Appointment Comment: Zoom link will be sent to [facility] email Post Discharge Appointments Primary Care Physician Name Of Family Doctor/PCP: Felicita Contact Information [place] [address] [place] [address] Discharge Plan Discharge Items Patient Disposition: Home - Self-Care Reason For Visit: UNSPECIFIED DEPRESSION Discharge Diagnosis: Major depressive disorder, recurrent, moderate Stimulant use disorder, moderate Parent-child relational problem Activity: Resume your previous activity Non-emergency contact: Primary Care Provider, Psychiatrist and Therapist Call non-emergency contact if: you have any medication questions and your sympto ms worsen Follow-up/Referrals: [facility] [Primary Care Provider] - Diet: Regular Addtl Attending Provider Instructions: SPECIAL CARE INSTRUCTIONS: 1. Follow through with your scheduled aftercare appointments. If unable to keep an appointment, please call to reschedule. 2. Take your medication only as prescribed. Medication should not be changed or stopped without the approval of your doctor. In the event of worsening symptoms or concerns about side effects, contact your doctor immediately. 3. Utilize new healthy coping skills, anger management skills, and stress management skills learned during your hospitalization. Journal feelings and process them with a support person. Identify stressors or situations that may result in relapse, deterioration or inappropriate behaviors and develop a plan to deal with those issues. 4. If your coping skills are ineffective and you are in crisis, contact your outpatient providers for direction. If unable to reach your providers, please call the [facility] CRISIS LINE AT , go to the [facility] walk-in center at [address], [address], [place], or go to the closest Emergency Room. 5. Avoid alcohol and un-prescribed drugs. 6. You have been provided with the Mental Health Advance Directives Pamphlet for your review. 7. Your condition is stable for discharge to outpatient level of care, but recovery is an ongoing process. Ifthoughts to harm yourself or others return, follow the safety plan developed during your stay. Planning for a safe return home includes securing weapons. Our treatment team recommends weaponsbe removed from the home until your outpatient provider reassesses your progress. In rare cases where the items themselvescannot be removed, guns and ammunitionshould be secured separatelyand keys stored by a reliable personoutside of the home. If you were admitted on an involuntary commitment, the police or other legal authorities may be involved in this process. AFTERCARE APPOINTMENTS: * Please call your insurance company prior to your scheduled appointment to confirm your aftercare providers are covered. Take your insurance information to your appointments. WHO TO CALL AND WHEN: Medical Emergencies: For questions or emergencies related to your hospital stay, please contact the Inpatient Behavioral Health Unit at [phone]. A merchandising assistant is on-call 10/11 for the Behavioral Health Unit for emergencies At any time you feel your situation is an emergency, you may also call 911 immediately. Pending Studies at Discharge: No Stand-Alone Forms: My [facility], Smoking Cessation Medications and DC Order Prescriptions: New bupropion HCl 150 mg Tablet Sustained-Release 12 Hr 150 mg PO QAM 30 Days Qty: 30 0RF Continued norethindrone (contraceptive) 0.35 mg tablet 0.35 mg PO DAILY Discharge Orders: Discharge Order (Routine); Ordered 08/11/23 Ordered By: Nikki Reyes/Other Patient Handouts: Addiction Disease, Addiction Questionnaire, Addiction Tx Options Admission Data Admit Date/Time: 08/06/23 13:38 Attending Provider: Krystal Moore Admit Provider: Krystal Moore Primary Care Provider: [facility] Other Interventions: Discharge Summary Assessment (RN) Last Done: 08/11/23 12:44 Coding [place] [address] D/C day mgmt 30 min or < Patient Type Established History Problem Focused Exam Problem Focused Medical Decision Making Low Complexity Diagnoses Suicidal ideation R45.851 Alcohol use disorder F10.90 Depression, unspecified depression type F32.A Depression Type: unspecified Overdose of nonsteroidal anti-inflammatory drug (NSAID), intentional self-harm, subsequent encounter T39.392D Encounter type: subsequent encounter Injury intent: intentional self-harm Suicide attempt T14.91XA Time Spent (min) 30
[2023-08-11] MEDS ORDERED: DESTROY THIS MEDICATION ONE (12:58)
== END 2023-08-11 14:12 | disposition home or self-care (01) | DRG 885 ==
LOC: ED 02:31 → 3S 13:38